=== PATIENT | male | born 1945 | race Caucasian/White ===

== ENCOUNTER → 2017-02-22 | Outpatient (REF) | payer MEDICARE ==
[~2017-02-22] MED LIST: /GLIP10TAB; ALTA10CA; ANDROGEL; CIME300T91; GLUC1000; JANUVIA; LIPI10TA; NADO40TA5; NORV5TAB; PLAV75TA2; metformin
[2017-02-22 11:38] LABS: MEAN CORPUSCULAR HEMOGLOBIN 33.6 pg (27.0-33.0); MEAN CORPUSCULAR HGB CONC 34.8 g/dl (32.0-36.5); MEAN CORPUSCULAR VOLUME 96.6 fl (80.0-96.0); RED CELL DISTRIBUTION WIDTH 12.6 % (11.5-14.5); WHITE BLOOD COUNT 5.1 K/mm3 (4.0-10.0)
[2017-02-22 11:48] LABS: ALBUMIN 3.7 GM/DL (3.2-5.2); ALBUMIN/GLOBULIN RATIO 1.23 (1.00-1.93); CALCIUM LEVEL 9.2 MG/DL (8.8-10.2); CREATININE FOR GFR 1.37 MG/DL (0.70-1.30); GLOMERULAR FILTRATION RATE 54.7 (>42); POTASSIUM SERUM 4.2 MEQ/L (3.5-5.1); TOTAL PROTEIN 6.7 GM/DL (6.4-8.2)
== END ==
LOC: M SFHCPLAZ 08:33
PROVIDERS: ATTEND Family Medicine
DX: I25.799 Atherosclerosis of other coronary artery bypass graft(s) with unspecified angina pectoris (principal); E11.51 Type 2 diabetes mellitus with diabetic peripheral angiopathy without gangrene

== ENCOUNTER → 2017-06-07 | Outpatient (REF) | payer MEDICARE ==
[~2017-06-07] MED LIST changes: +ASPI81TA85 PO; -GLUC1000; +GLUC1000 PO; +JARD1TAB3 PO; +LANTINJ4 SUBQ; -LIPI10TA; +LIPI10TA PO; +LISI2.5T3 PO; +METO1TAB87 PO; +MULT1TAB11 PO; +NITR0.4S14 SL; -PLAV75TA2; +PLAV75TA2 PO; +RANI150T PO; -metformin; +metformin PO
[2017-06-07 13:26] LABS: FOLATE > 24.0 NG/ML (>5.4); VITAMIN B12 LEVEL 487 PG/ML (247-911)
[2017-06-07 13:29] LABS: MEAN CORPUSCULAR HEMOGLOBIN 32.3 pg (27.0-33.0); MEAN CORPUSCULAR HGB CONC 34.3 g/dl (32.0-36.5); MEAN CORPUSCULAR VOLUME 94.1 fl (80.0-96.0)
[2017-06-07 13:30] LABS: ANION GAP 7 MEQ/L (8-16); BLOOD UREA NITROGEN 24 MG/DL (7-18); CARBON DIOXIDE LEVEL 27 MEQ/L (21-32); CHLORIDE LEVEL 111 MEQ/L (98-107); CREATININE FOR GFR 1.49 MG/DL (0.70-1.30); FREE T4 1.24 NG/DL (0.76-1.46); GLOMERULAR FILTRATION RATE 49.5 (>42); GLUCOSE, FASTING 139 MG/DL (83-110); SODIUM LEVEL 145 MEQ/L (136-145)
== END ==
LOC: M SFHCADAM 08:09
PROVIDERS: ATTEND Family Medicine
DX: R41.3 Other amnesia (principal); E11.51 Type 2 diabetes mellitus with diabetic peripheral angiopathy without gangrene

== ENCOUNTER → 2017-07-15 | Outpatient (CLI) | payer MEDICARE ==
[2017-07-15 13:26] LABS: CALCIUM LEVEL 9.1 MG/DL (8.8-10.2); CREATININE FOR GFR 1.33 MG/DL (0.70-1.30); GLOMERULAR FILTRATION RATE 56.4 (>42); POTASSIUM SERUM 4.9 MEQ/L (3.5-5.1)
== END ==
LOC: M WUC 10:04
PROVIDERS: ATTEND Nurse Practitioner Family
DX: E78.00 Pure hypercholesterolemia, unspecified (principal); I10 Essential (primary) hypertension; E11.9 Type 2 diabetes mellitus without complications; I73.9 Peripheral vascular disease, unspecified; Z95.5 Presence of coronary angioplasty implant and graft

== ENCOUNTER 2017-08-17 12:18 | Day surgery (SDC) | payer MEDICARE ==
[~2017-08-17] VITALS: Ht 177.8 cm; Wt 105.6 kg
[2017-08-17] MEDS ORDERED: NS 1,000 ML IV ONE (12:30)
[2017-08-17] MEDS ORDERED: PROPOFOL 200 MG/20 ML VIAL As Ordered ONE (12:58)
--- NOTE | 2017-08-17 14:18 | ROOR ---
Patient Name: Efren Cárdenas Procedure Date: 08/17/2017 1:41 PM Date of : 1945 Age: 72 Room: [facility] Gender: Male Note Status: Finalized Procedure: Total Colonoscopy to Cecum + Cold Snare Polypectomy + Hemoclip Indications: High risk colon cancer surveillance: Personal history of colonic polyps, Last colonoscopy: 2011 Providers: Bryce Ramos MD Referring MD: Homero Wills MD Requesting Provider: Medicines: Monitored Anesthesia Care Complications: No immediate complications. Procedure: Pre-Anesthesia Assessment: - The heart rate, respiratory rate, oxygen saturations, blood pressure, adequacy of pulmonary ventilation, and response to care were monitored throughout the procedure. The Colonoscope was introduced through the anus and advanced to the cecum, identified by appendiceal orifice and ileocecal valve. The colonoscopy was performed without difficulty. The patient tolerated the procedure well. The quality of the bowel preparation was good. Findings: The perianal and digital rectal examinations were normal. Non-bleeding internal hemorrhoids were found during retroflexion. The hemorrhoids were small and Grade I (internal hemorrhoids that do not prolapse). Scattered small-mouthed diverticula were found in the recto-sigmoid colon, sigmoid colon and descending colon. Multiple sessile polyps were found in the transverse colon and ascending colon. The polyps were small in size. These polyps were removed with a cold snare. Resection and retrieval were complete. To prevent bleeding after the polypectomy, one hemostatic clip was successfully placed (MR conditional). There was no bleeding at the end of the procedure. The exam was otherwise without abnormality on direct and retroflexion views. Impression: - Non-bleeding internal hemorrhoids. - Diverticulosis in the recto-sigmoid colon, in the sigmoid colon and in the descending colon. - Multiple small polyps in the transverse colon and in the ascending colon, removed with a cold snare. Resected and retrieved. Clip (MR conditional) was placed. - The examination was otherwise normal on direct and retroflexion views. - The exam was otherwise normal to the cecum. Recommendation: - Patient has a contact number available for emergencies. The signs and symptoms of potential delayed complications were discussed with the patient. Return to normal activities tomorrow. Written discharge instructions were provided to the patient. - Discharge patient to home. - Continue present medications. - Await pathology results. - Telephone GI clinic for pathology results in 1 week. - Check Portal Online for Path Results.([email or web address]) - Repeat colonoscopy in 5 years for surveillance based on pathology results. - Return to referring physician. - The findings and recommendations were discussed with the patient's family. Bryce Ramos MD Bryce Ramos MD 08/17/2017 2:18:41 PM This report has been signed electronically. Number of Addenda: 0 Note Initiated On: 08/17/2017 1:41 PM Estimated Blood Loss: Estimated blood loss: none.
[2017-08-17 14:50] VITALS: BP 109/65
== END 2017-08-17 14:55 | disposition home or self-care (01) ==
LOC: M OPP 12:18
PROVIDERS: ATTEND Internal Medicine Gastroenterology
DX: Z12.11 Encounter for screening for malignant neoplasm of colon (principal); Z86.010 Personal history of colon polyps; D12.2 Benign neoplasm of ascending colon; D12.3 Benign neoplasm of transverse colon; K64.0 First degree hemorrhoids; K57.30 Diverticulosis of large intestine without perforation or abscess without bleeding; I25.10 Atherosclerotic heart disease of native coronary artery without angina pectoris; Z95.5 Presence of coronary angioplasty implant and graft; I25.2 Old myocardial infarction; I10 Essential (primary) hypertension; E78.5 Hyperlipidemia, unspecified; Z95.828 Presence of other vascular implants and grafts; E11.9 Type 2 diabetes mellitus without complications; R12 Heartburn; K21.9 Gastro-esophageal reflux disease without esophagitis; K57.92 Diverticulitis of intestine, part unspecified, without perforation or abscess without bleeding; Z95.1 Presence of aortocoronary bypass graft; M19.90 Unspecified osteoarthritis, unspecified site; F41.9 Anxiety disorder, unspecified; Z86.73 Personal history of transient ischemic attack (TIA), and cerebral infarction without residual deficits; N40.1 Benign prostatic hyperplasia with lower urinary tract symptoms; Z87.891 Personal history of nicotine dependence; Z88.1 Allergy status to other antibiotic agents; Z88.0 Allergy status to penicillin; Z91.030 Bee allergy status; Z79.82 Long term (current) use of aspirin; Z79.899 Other long term (current) drug therapy; Z79.4 Long term (current) use of insulin; Z79.02 Long term (current) use of antithrombotics/antiplatelets

== ENCOUNTER → 2018-03-22 | Outpatient (REF) | payer MEDICARE ==
[2018-03-22 12:45] LABS: HEMATOCRIT 45.6 % (42.0-52.0); HEMOGLOBIN 15.7 g/dl (13.5-17.5); MEAN CORPUSCULAR HEMOGLOBIN 31.9 pg (27.0-33.0); MEAN CORPUSCULAR HGB CONC 34.4 g/dl (32.0-36.5); MEAN CORPUSCULAR VOLUME 92.7 fl (80.0-96.0); PLATELET COUNT, AUTOMATED 232 10^3/uL (150-450); RED BLOOD COUNT 4.92 10^6/uL (4.30-6.10); RED CELL DISTRIBUTION WIDTH 12.9 % (11.5-14.5); WHITE BLOOD COUNT 5.4 10^3/uL (4.0-10.0)
[2018-03-22 13:07] LABS: ALBUMIN 3.6 GM/DL (3.2-5.2); ALBUMIN/GLOBULIN RATIO 1.29 (1.00-1.93); ALKALINE PHOSPHATASE 89 U/L (45-117); ALT/SGPT 26 U/L (12-78); ANION GAP 11 MEQ/L (8-16); AST/SGOT 14 U/L (7-37); BILIRUBIN,TOTAL 0.8 MG/DL (0.2-1.0); BLOOD UREA NITROGEN 24 MG/DL (7-18); CALCIUM LEVEL 9.1 MG/DL (8.8-10.2); CARBON DIOXIDE LEVEL 23 MEQ/L (21-32); CHLORIDE LEVEL 110 MEQ/L (98-107); CHOLESTEROL LEVEL 99 MG/DL (<200); CREATININE FOR GFR 1.34 MG/DL (0.70-1.30); GLOMERULAR FILTRATION RATE 55.9 (>42); GLUCOSE, FASTING 143 MG/DL (70-100); HDL CHOLESTEROL 30 MG/DL (>40); LDL CHOLESTEROL 42.4 MG/DL (<100); NON-HDL-C 69 MG/DL; POTASSIUM SERUM 4.7 MEQ/L (3.5-5.1); SODIUM LEVEL 144 MEQ/L (136-145); TOTAL PROTEIN 6.4 GM/DL (6.4-8.2); TRIGLYCERIDES LEVEL 133 MG/DL (<150)
[2018-03-22 13:14] LABS: ESTIMATED AVERAGE GLUCOSE 169 MG/DL (60-110); HEMOGLOBIN A1c 7.5 %
[2018-03-22 13:26] LABS: CREATININE, URINE 54.2 MG/DL; MALB URINE SIEMENS 34.7 MG/L
[2018-03-22 14:48] LABS: HEP C VIRUS AB SCREEN MEDICARE < 0.0 INDEX (<0.8)
== END ==
LOC: M SFHCADAM 10:17
DX: N18.3 Chronic kidney disease, stage 3 (moderate) (principal); E11.51 Type 2 diabetes mellitus with diabetic peripheral angiopathy without gangrene; E78.2 Mixed hyperlipidemia; Z11.59 Encounter for screening for other viral diseases
CPT/HCPCS: 80053

== ENCOUNTER → 2018-03-29 | Outpatient (CLI) | payer MEDICARE | LOC: M ADAMS 14:39 | DX: M51.36 Other intervertebral disc degeneration, lumbar region (principal); M25.78 Osteophyte, vertebrae; M41.25 Other idiopathic scoliosis, thoracolumbar region; M51.46 Schmorl's nodes, lumbar region; R10.9 Unspecified abdominal pain | CPT/HCPCS: 72110 ==

== ENCOUNTER → 2018-04-03 | Outpatient (CLI) | payer MEDICARE | LOC: M RAD 13:18 | DX: R10.9 Unspecified abdominal pain (principal) | CPT/HCPCS: 76775 ==

== ENCOUNTER → 2018-07-18 | Outpatient (REF) | payer MEDICARE ==
[2018-07-18 13:09] LABS: ANION GAP 7 MEQ/L (8-16); BLOOD UREA NITROGEN 25 MG/DL (7-18); CALCIUM LEVEL 8.8 MG/DL (8.8-10.2); CARBON DIOXIDE LEVEL 25 MEQ/L (21-32); CHLORIDE LEVEL 111 MEQ/L (98-107); CREATININE FOR GFR 1.29 MG/DL (0.70-1.30); GLOMERULAR FILTRATION RATE 58.3 (>42); GLUCOSE, FASTING 130 MG/DL (70-100); POTASSIUM SERUM 4.6 MEQ/L (3.5-5.1); SODIUM LEVEL 143 MEQ/L (136-145)
[2018-07-18 23:30] LABS: ESTIMATED AVERAGE GLUCOSE 154 MG/DL (60-110)
== END ==
LOC: M SFHCADAM 09:30
DX: E11.51 Type 2 diabetes mellitus with diabetic peripheral angiopathy without gangrene (principal)
CPT/HCPCS: 83036

== ENCOUNTER → 2019-02-18 | Outpatient (REF) | payer MEDICARE ==
[~2019-02-18] MED LIST changes: +LISI-1046 PO; -LISI2.5T3 PO
[2019-02-18 09:42] LABS: HEMATOCRIT 46.8 % (42.0-52.0); HEMOGLOBIN 15.7 g/dl (13.5-17.5); MEAN CORPUSCULAR HEMOGLOBIN 31.9 pg (27.0-33.0); MEAN CORPUSCULAR HGB CONC 33.5 g/dl (32.0-36.5); MEAN CORPUSCULAR VOLUME 95.1 fl (80.0-96.0); PLATELET COUNT, AUTOMATED 181 10^3/uL (150-450); RED BLOOD COUNT 4.92 10^6/uL (4.30-6.10); WHITE BLOOD COUNT 5.3 10^3/uL (4.0-10.0)
[2019-02-18 10:07] LABS: ALBUMIN 3.8 GM/DL (3.2-5.2); BILIRUBIN,TOTAL 1.3 MG/DL (0.2-1.0); CALCIUM LEVEL 8.9 MG/DL (8.8-10.2); CHOLESTEROL RISK RATIO 2.909 (<5); CREATININE FOR GFR 1.38 MG/DL (0.70-1.30); GLOMERULAR FILTRATION RATE 53.9 (>42); POTASSIUM SERUM 5.1 MEQ/L (3.5-5.1); TOTAL PROTEIN 6.5 GM/DL (6.4-8.2)
[2019-02-18 10:14] LABS: CREATININE, URINE 51.5 MG/DL; MAU/CREAT RATIO 62.1 MCG/MG (0.0-30.0)
[2019-02-18 10:40] LABS: HEMOGLOBIN A1c 7.6 %
== END ==
LOC: M SFHCADAM 08:51
PROVIDERS: ATTEND Family Medicine
DX: I25.799 Atherosclerosis of other coronary artery bypass graft(s) with unspecified angina pectoris (principal); N18.3 Chronic kidney disease, stage 3 (moderate); E11.51 Type 2 diabetes mellitus with diabetic peripheral angiopathy without gangrene; E78.2 Mixed hyperlipidemia; Z12.5 Encounter for screening for malignant neoplasm of prostate
CPT/HCPCS: 80053; 80061; 82043; 83036; 85027; G0103

== ENCOUNTER → 2019-03-23 | Outpatient (CLI) | payer MEDICARE ==
--- NOTE | 2019-03-23 14:47 | REP ---
Bilateral lower extremity arterial Doppler ultrasound: History: Intermittent claudication. Peripheral vascular disease. Right lower extremity bypass. Findings: Ankle brachial index on the right could not be done to to bypass graft and reversal of flow seen. Ankle brachial index on the left is 0.7. There is a patent bypass graft from the proximal femoral artery on the right to the posterior tibial artery. The [place] right superficial femoral artery and popliteal artery are occluded with minimal revascularization at the popliteal artery flow in the proximal anterior tibial artery. Reverse flow is seen in the distal anterior tibial artery on the right. On the left monophasic flow waveforms are seen throughout. Extensive severe plaque is seen throughout. Velocity chart right lower extremity arteries: CF A 109 cm/S Profunda 77 Proximal SFA 86 Mid SFA occluded Distal SFA occluded Popliteal seven Proximal AT A 36 Tibioperoneal trunk occluded Proximal REFRIGERATION SERVICE TECHNICIAN occluded Distal REFRIGERATION SERVICE TECHNICIAN 95 Distal AT A reversed flow. Velocity chart left lower extremity arteries: External iliac artery 106 cm/S CF A 77 Profunda 54 Proximal SFA 31 Mid SFA 76 Distal SFA 26 Popliteal 21 Proximal AT A 14 Tibioperoneal trunk 63 Proximal REFRIGERATION SERVICE TECHNICIAN 40 Distal REFRIGERATION SERVICE TECHNICIAN 31 Distal AT A 27 Electronically Signed by Don Mascorro MD 03/23/2019 02:38 P
== END ==
LOC: M RAD 12:37
PROVIDERS: ATTEND Surgery Vascular Surgery
DX: I70.213 Atherosclerosis of native arteries of extremities with intermittent claudication, bilateral legs (principal)

== ENCOUNTER → 2019-06-22 | Outpatient (REF) | payer MEDICARE ==
[2019-06-22 12:36] LABS: HEMATOCRIT 46.3 % (42.0-52.0); HEMOGLOBIN 15.6 g/dl (13.5-17.5); MEAN CORPUSCULAR HEMOGLOBIN 31.6 pg (27.0-33.0); MEAN CORPUSCULAR HGB CONC 33.7 g/dl (32.0-36.5); MEAN CORPUSCULAR VOLUME 93.9 fl (80.0-96.0); PLATELET COUNT, AUTOMATED 192 10^3/uL (150-450); RED BLOOD COUNT 4.93 10^6/uL (4.30-6.10)
[2019-06-22 12:41] LABS: CALCIUM LEVEL 9.4 MG/DL (8.8-10.2); CREATININE FOR GFR 1.31 MG/DL (0.70-1.30); GLOMERULAR FILTRATION RATE 57.1 (>42); POTASSIUM SERUM 4.3 MEQ/L (3.5-5.1)
[2019-06-22 13:56] LABS: HEMOGLOBIN A1c 7.7 %
== END ==
LOC: M SFHCADAM 08:37
PROVIDERS: ATTEND Family Medicine
DX: I63.49 Cerebral infarction due to embolism of other cerebral artery (principal); N18.3 Chronic kidney disease, stage 3 (moderate); E11.51 Type 2 diabetes mellitus with diabetic peripheral angiopathy without gangrene

== ENCOUNTER → 2020-02-18 | Outpatient (REF) | payer MEDICARE ==
[~2020-02-18] MED LIST changes: -LISI-1046 PO; +LISI2.5T2 PO
[2020-02-18 12:57] LABS: HEMATOCRIT 49.8 % (42.0-52.0); HEMOGLOBIN 16.3 g/dl (13.5-17.5); MEAN CORPUSCULAR HEMOGLOBIN 29.9 pg (27.0-33.0); MEAN CORPUSCULAR HGB CONC 32.7 g/dl (32.0-36.5); MEAN CORPUSCULAR VOLUME 91.2 fl (80.0-96.0); PLATELET COUNT, AUTOMATED 225 10^3/uL (150-450); RED BLOOD COUNT 5.46 10^6/uL (4.30-6.10); WHITE BLOOD COUNT 5.9 10^3/uL (4.0-10.0)
[2020-02-18 13:08] LABS: BILIRUBIN,TOTAL 1.3 MG/DL (0.2-1.0); CALCIUM LEVEL 9.4 MG/DL (8.8-10.2); CHOLESTEROL RISK RATIO 3.352 (<5); CREATININE FOR GFR 1.34 MG/DL (0.70-1.30); GLOMERULAR FILTRATION RATE 55.6 (>42); POTASSIUM SERUM 4.5 MEQ/L (3.5-5.1); TOTAL PROTEIN 7.2 GM/DL (6.4-8.2)
[2020-02-18 13:32] LABS: CREATININE, URINE 69.4 MG/DL; MALB URINE SIEMENS 54.5 MG/L; MAU/CREAT RATIO 78.5 MCG/MG (0.0-30.0)
[2020-02-18 14:35] LABS: HEMOGLOBIN A1c 7.9 %
== END ==
LOC: M SFHCADAM 09:22
PROVIDERS: ATTEND Family Medicine
DX: N18.3 Chronic kidney disease, stage 3 (moderate) (principal); E11.49 Type 2 diabetes mellitus with other diabetic neurological complication; I11.9 Hypertensive heart disease without heart failure; I63.49 Cerebral infarction due to embolism of other cerebral artery

== ENCOUNTER → 2020-05-16 | Outpatient (REF) | payer MEDICARE ==
[~2020-05-16] MED LIST changes: -ASPI81TA85 PO; +ASPI81TA86 PO; +BRIL90TA PO; +FARX1TAB3 PO; +MULT-90 PO; +NORV2TAB PO; +PEPC10TA6 PO; +[UNRECOGNIZED DRUG - OTHER] PO
[2020-06-14 04:13] LABS: INR 1.2; PARTIAL THROMBOPLASTIN TIME 33.3 SECONDS (25.0-38.4); PROTHROMBIN TIME 15.5 SECONDS (11.8-14.0)
[2020-06-14 04:28] LABS: BASO # 0.1 10^3/uL (0.0-0.2); EOS # 0.3 10^3/uL (0.0-0.5); EOS % 4.7 % (0.0-3.0); HEMATOCRIT 46.2 % (42.0-52.0); LYMPH # 1.7 10^3/uL (1.5-5.0); LYMPH % 27.1 % (24.0-44.0); MEAN CORPUSCULAR HEMOGLOBIN 30.5 pg (27.0-33.0); MEAN CORPUSCULAR HGB CONC 32.5 g/dl (32.0-36.5); MEAN CORPUSCULAR VOLUME 94.1 fl (80.0-96.0); MONO # 0.5 10^3/uL (0.0-0.8); MONO % 8.8 % (0.0-5.0); NEUTROPHILS # 3.6 10^3/uL (1.5-8.5); NEUTROPHILS % 58.1 % (36.0-66.0); PLATELET COUNT, AUTOMATED 243 10^3/uL (150-450); RED BLOOD COUNT 4.91 10^6/uL (4.30-6.10); WHITE BLOOD COUNT 6.2 10^3/uL (4.0-10.0)
[2020-06-30 07:58] LABS: CALCIUM LEVEL 9.1 MG/DL (8.8-10.2); CREATININE FOR GFR 1.4 MG/DL (0.70-1.30); GLOMERULAR FILTRATION RATE 52.7 (>42); POTASSIUM SERUM 4.5 MEQ/L (3.5-5.1)
== END ==
LOC: M LAB REF 15:22
PROVIDERS: ATTEND Surgery Vascular Surgery
DX: Z01.818 Encounter for other preprocedural examination (principal); D69.8 Other specified hemorrhagic conditions

== ENCOUNTER → 2020-06-04 | Outpatient (REF) | payer MEDICARE ==
[2020-06-04 14:42] LABS: ALBUMIN 3.8 GM/DL (3.2-5.2); BILIRUBIN,TOTAL 1.1 MG/DL (0.2-1.0); CALCIUM LEVEL 9.4 MG/DL (8.8-10.2); CREATININE FOR GFR 1.43 MG/DL (0.70-1.30); GLOMERULAR FILTRATION RATE 51.5 (>42); POTASSIUM SERUM 4.6 MEQ/L (3.5-5.1); TOTAL PROTEIN 6.7 GM/DL (6.4-8.2)
[2020-06-04 14:43] LABS: HEMATOCRIT 46.8 % (42.0-52.0); HEMOGLOBIN 15.1 g/dl (13.5-17.5); MEAN CORPUSCULAR HEMOGLOBIN 30.6 pg (27.0-33.0); MEAN CORPUSCULAR HGB CONC 32.3 g/dl (32.0-36.5); MEAN CORPUSCULAR VOLUME 94.7 fl (80.0-96.0); PLATELET COUNT, AUTOMATED 243 10^3/uL (150-450); RED BLOOD COUNT 4.94 10^6/uL (4.30-6.10)
[2020-06-04 15:59] LABS: HEMOGLOBIN A1c 6.7 %
== END ==
LOC: M LABDRWAD 12:53
PROVIDERS: ATTEND Family Medicine
DX: E11.51 Type 2 diabetes mellitus with diabetic peripheral angiopathy without gangrene (principal); I73.9 Peripheral vascular disease, unspecified; N18.3 Chronic kidney disease, stage 3 (moderate)
CPT/HCPCS: 36415; 80053; 83036; 85027; G0463

== ENCOUNTER → 2020-06-24 | Outpatient (REF) | payer MEDICARE | LOC: M LAB REF 11:43 | PROVIDERS: ATTEND Surgery | DX: E11.621 Type 2 diabetes mellitus with foot ulcer (principal) | CPT/HCPCS: 11044; 87070; 87077; 87186; 88305; G0463 ==

== ENCOUNTER → 2020-07-22 | Outpatient (POV) | payer MEDICARE ==
--- NOTE | 2020-07-23 13:49 | IRCOV ---
[facility] IR Consult Office Visit IR Consult Office Visit DATE: Jul 22, 2020 Patient agreed to this telephone consultation. I spent 30 minutes reviewing patient's chart and talking to the patient. REASON FOR CONSULTATION/CHIEF COMPLAINT: Nonhealing right lower extremity ulcers. HISTORY OF PRESENT ILLNESS: 75-year-old male with coronary artery disease, prior stroke and prior right lower extremity arterial bypass, presents for nonhealing right lower extremity wounds. Patient states the bypass was performed 6 years ago because at that time he had pain in his legs with walking. After the bypass surgery, the pain went away. However, he is suffering with exquisitely painful, right lower extremity wounds which started this summer. He is under the care of wound care. He denies intermittent claudication but is not very mobile. Denies rest pain. Patient states he had left lower extremity angioplasty and stenting by interventional cardiology in [place]. He also underwent angiography by interventional cardiology in [place] in December of this year, at which time he had proximal angioplasty. He was seen by vascular surgery in May 2020 with angiogram. At that time, he was told no further below-knee intervention was possible. He was given the option of an additional bypass and was told this would be very complicated. Patient has had prior open-heart surgery and coronary stents placed in 2016. He had a stroke in 2019. He quit smoking greater than 1 year ago. He is diabetic with a hemoglobin A1c controlled at 6.7. He is hypertensive with blood pressure poorly controlled. He takes aspirin, Brilinta and Xarelto. ALLERGIES: Please see below. HOME MEDICATIONS: Please see below. PAST MEDICAL HISTORY: CAD Non-STEMI 2016 Cardiac cath 2016 CVA 2019 Pancreatitis Hypertension Type 2 diabetes Neuropathy Hyperlipidemia Testosterone deficiency CK D PAST SURGICAL HISTORY: Open-heart bypass 2005 Coronary stents 2016 Thrombolysis for stroke in 2019 Left lower extremity angioplasty and stenting Right lower extremity angiogram and intervention FAMILY HISTORY: Noncontributory SOCIAL HISTORY: Ex-smoker. Quit 1 year ago. Denies alcohol or drugs. REVIEW OF SYSTEMS: Otherwise negative PHYSICAL EXAMINATION: No video on patient side. LABORATORY DATA: 06/04/2020 hemoglobin 15.1 hematocrit 46.8 WBC 7.0 platelets 243 sodium 142 potassium 4.6 BUN 22 creatinine 1.43 GFR 51.5 fasting glucose 186. hemoglobin A1c 6.7. LDL 53 on 02/18/2020 INR 1.2 on 05/16/2020 Imaging: No imaging available. ASSESSMENT/PLAN: 75-year-old male with coronary and cerebrovascular disease and peripheral arterial disease status post right leg bypass with new nonhealing arterial ulcers. Patient had prior angiogram without below-knee or pedal intervention. We discussed the risks and benefits of performing angiogram and attempted pedal revascularization. Patient would like to proceed. We will request the imaging from [facility] for pre-angiography planning. We have scheduled the patient for the procedure. Thank you for this referral. CC Dr. Naidu Allergies Coded Allergies: MS - Bee Venom (Verified Allergy, Severe, BREATHING TROUBLE, 08/16/17) MS - Penicillins (Unverified Allergy, Severe, TROUBLE BREATHING,HIVES, 08/16/17) MS - Penicillins Cross Reactors (Unverified Allergy, Severe, TROUBLE BREATHING,HIVES, 08/16/17) MS - Erythromycin (Unverified Adverse Reaction, Mild, UPSET STOMACH GI, 08/16/17) Home Medications Scheduled (Multivitamin Men), 1 TAB PO DAILY, (Reported) Aspirin (Aspir 81), 81 MG PO DAILY, (Reported) Atorvastatin Calcium (Lipitor), 10 MG PO DAILY, (Reported) Clopidogrel Bisulfate (Plavix), 75 MG PO DAILY, (Reported) Empagliflozin (Jardiance), 10 MG PO DAILY, (Reported) Insulin Glargine,Hum.rec.anlog (Lantus Solostar), 70 UNITS SUBQ QAM, (Reported) Lisinopril (Lisinopril), 2.5 MG PO DAILY, (Reported) Metformin HCl (Metformin Hcl), 1,000 MG PO QPM, (Reported) Metoprolol Tartrate (Metoprolol Tartrate), 25 MG PO BID, (Reported) Ranitidine HCl (Ranitidine HCl), 150 MG PO BID, (Reported) [metformin], 1,500 MG PO QAM, (Reported) Scheduled PRN Nitroglycerin (Nitroglycerin), 0.4 MG SL ASDIRECTED PRN for CHEST PAIN, (Reported) LEE WOODS MD Jul 23, 2020 13:49
== END ==
LOC: M TMIRPOV 13:38
PROVIDERS: ATTEND Radiology Diagnostic Radiology
DX: L97.919 Non-pressure chronic ulcer of unspecified part of right lower leg with unspecified severity (principal); E11.22 Type 2 diabetes mellitus with diabetic chronic kidney disease; E11.40 Type 2 diabetes mellitus with diabetic neuropathy, unspecified; E11.622 Type 2 diabetes mellitus with other skin ulcer; I12.9 Hypertensive chronic kidney disease with stage 1 through stage 4 chronic kidney disease, or unspecified chronic kidney disease; I25.10 Atherosclerotic heart disease of native coronary artery without angina pectoris; I25.2 Old myocardial infarction; N18.9 Chronic kidney disease, unspecified; Z79.82 Long term (current) use of aspirin; Z79.84 Long term (current) use of oral hypoglycemic drugs; Z79.899 Other long term (current) drug therapy; Z86.73 Personal history of transient ischemic attack (TIA), and cerebral infarction without residual deficits; Z88.0 Allergy status to penicillin; Z88.1 Allergy status to other antibiotic agents; Z91.030 Bee allergy status; Z95.5 Presence of coronary angioplasty implant and graft; Z95.828 Presence of other vascular implants and grafts; Z98.61 Coronary angioplasty status

== ENCOUNTER → 2020-07-31 | Outpatient (CLI) | payer MEDICARE ==
[~2020-07-31] MED LIST changes: +ISOVUE-300 61% 50ML VIAL As Ordered ONE; +LIDOCAINE 1% MDV 20ML VIAL As Ordered ONE; +MIDAZOLAM INJ 2MG/2ML VIAL (J2250 PER 1MG) As Ordered ONE; +PROMETHAZINE INJ 25 MG/ML VIAL (J2550) As Ordered ONE; +diphenhydrAMINE 50MG/ML VIAL (J1200) As Ordered ONE; +fentaNYL 100 MCG/2 ML INJECTION (J3010) As Ordered ONE
[2020-07-31 09:57] LABS: HEMATOCRIT 51.1 % (42.0-52.0); HEMOGLOBIN 16.5 g/dl (13.5-17.5); MEAN CORPUSCULAR HEMOGLOBIN 30.3 pg (27.0-33.0); MEAN CORPUSCULAR HGB CONC 32.3 g/dl (32.0-36.5); MEAN CORPUSCULAR VOLUME 93.9 fl (80.0-96.0); PLATELET COUNT, AUTOMATED 189 10^3/uL (150-450); RED BLOOD COUNT 5.44 10^6/uL (4.30-6.10); WHITE BLOOD COUNT 7.4 10^3/uL (4.0-10.0)
--- NOTE | 2020-07-31 10:13 | IRHP ---
[facility] IR Pre-Procedure H & P General Date of Service: Jul 31, 2020 Procedure: Same Day Surgery Interval History and Physical I have seen the patient and reviewed last H & P performed within 30 days. There is no significant interval change. History of Present Illness Chief Complaint The patient is a 75-year-old male admitted with a reason for visit of PAD. PRE-PROCEDURE DIAGNOSIS: PAD HEART: normal rate. LUNGS: normal breathing at rest. ASA Classification ASA Classification: III-Severe systemic dis. Mallampati Score: II NPO: Yes Problems with prior sedation: No Obstructive Sleep Apnea: No Plan moderate sedation Allergies Coded Allergies: MS - Bee Venom (Verified Allergy, Severe, BREATHING TROUBLE, 08/16/17) MS - Penicillins (Unverified Allergy, Severe, TROUBLE BREATHING,HIVES, 08/16/17) MS - Penicillins Cross Reactors (Unverified Allergy, Severe, TROUBLE BREATHING,HIVES, 08/16/17) MS - Erythromycin (Unverified Adverse Reaction, Mild, UPSET STOMACH GI, 08/16/17) Home Medications Scheduled (Multivitamin Men), 1 TAB PO DAILY, (Reported) Aspirin (Aspir 81), 81 MG PO DAILY, (Reported) Atorvastatin Calcium (Lipitor), 10 MG PO DAILY, (Reported) Clopidogrel Bisulfate (Plavix), 75 MG PO DAILY, (Reported) Empagliflozin (Jardiance), 10 MG PO DAILY, (Reported) Insulin Glargine,Hum.rec.anlog (Lantus Solostar), 70 UNITS SUBQ QAM, (Reported) Lisinopril (Lisinopril), 2.5 MG PO DAILY, (Reported) Metformin HCl (Metformin Hcl), 1,000 MG PO QPM, (Reported) Metoprolol Tartrate (Metoprolol Tartrate), 25 MG PO BID, (Reported) Ranitidine HCl (Ranitidine HCl), 150 MG PO BID, (Reported) [metformin], 1,500 MG PO QAM, (Reported) Scheduled PRN Nitroglycerin (Nitroglycerin), 0.4 MG SL ASDIRECTED PRN for CHEST PAIN, (Reported) VS, I&O, 24H, Fishbone Vital Signs/I&O Vital Signs Date Time Temp Pulse Resp B/P (MAP) Pulse Ox O2 Delivery O2 Flow Rate FiO2 07/31/20 09:35 98.1 75 18 98 Room Air Laboratory Data 24H LABS Laboratory Tests 2 07/31/20 09:44: Nucleated Red Blood Cells % (auto) 0.0 CBC/BMP Laboratory Tests 07/31/20 09:44 LEE WOODS MD Jul 31, 2020 10:13
[2020-07-31 10:27] LABS: CREATININE FOR GFR 1.39 MG/DL (0.70-1.30); GLOMERULAR FILTRATION RATE 53.2 (>42)
[2020-07-31 18:20] VITALS: BP 156/78
--- NOTE | 2020-08-04 10:21 | POST-OPPD ---
Postoperative Procedure Note Date Of Procedure: Jul 31, 2020 Time Of Procedure: 16:00 IR Right leg angiogram IR Below-knee runoff arteriogram. IR Ultrasound-guided right femoral artery access. IR Right posterior tibial artery recanalization. IR Right posterior tibial artery angioplasty. IR Right plantar artery angioplasty. IR Moderate sedation. Clinical Information:Nonhealing right lower extremity arterial ulcers. Physician: Dr. Sumner. Procedure: The patient was advised of the benefits, risks, and alternatives of the procedure and informed consent was obtained. A time out was performed with verification of the patient's name, MRN, site of procedure, and type of procedure to be performed. The patient was positioned in the supine position on the angiographic table. The site was prepped and draped in the usual sterile fashion. Moderate sedation was performed by the physician including the presence of an independent trained RN, who assisted in monitoring the patient's level of consciousness and physiological status. Following the administration of fent anyl and Versed, the physician spent 120 minutes of continuous wobl-to-npgn time with the patient. A heel top lift splitter radiograph reveals surgical clips in the right thigh. Ultrasound of the right groin demonstrates patent right femoral artery. Lidocaine was used for local anesthesia. The right femoral artery was accessed antegrade, under ultrasound guidance with a microintroducer set. A short 0.018" [place] wire was inserted and the needle was exchanged for a 4 Fr microintroducer sheath. The guidewire and dilator were removed and a 0.035" [place] wire was placed into femoral artery. A 6 Fr sheath was placed over the wire. A right thigh angiogram was performed. This demonstrates patent proximal superficial femoral artery and profunda femoris. Occluded mid [place] superficial femoral artery. Patent bypass arising from the right superficial artery. Angiography further down the right leg was performed and this demonstrates Patent mid and distal fem-tib bypass. There is retrograde filling of the proximal peroneal and anterior tibial artery. Completely occluded mid and distal [place] SFA and popliteal artery. Angiography runoff to the right foot was performed. This demonstrates patent distal fem-tib bypass but complete occlusion of the posterior tibial artery distal to the bypass. There are intricate collaterals which reconstitute the dorsalis pedis, distal peroneal artery and plantar and calcaneal branches in the foot without direct in line tibial flow. A crossing catheter and wire were used under fluoroscopy guidance to catheterize the distal right fem-tib bypass. A magnification arteriogram was performed and this demonstrates complete occlusi on of the posterior tibial artery distal to the bypass. The catheter in conjunction with the wire was used to recanalize the posterior tibial artery. Intermittent injection of contrast confirms intraluminal location. An arteriogram was performed and this demonstrates catheterization of a collateral vessel and not the hibernating posterior tibial artery. The catheter was again retracted back to the distal bypass. In conjunction with the wire, the catheter was used to recanalize the posterior tibial artery. Intermittent injection of contrast confirmed intraluminal location. After successful catheterization to the right ankle, and angiogram was performed. This demonstrates successful catheterization of the right posterior tibial artery and forward flow in the medial plantar artery. There is multi segment 50-90% stenosis in the plantar artery and slow forward flow. The crossing catheter was removed of the wire. A 2.5 mm James angioplasty balloon was then advanced over the wire under fluoroscopy guidance and positioned in the right distal posterior tibial artery and medial plantar artery. Heparin was administered. Angioplasty was performed. The balloon was deflated and then repositioned in the distal bypass and posterior tibial artery. Angioplasty was performed. An angiogram of the right forefoot was performed through the catheter. This demonstrates patent metatarsal arteries. The catheter was retracted to the level of the calcaneus. A post angioplasty follow-up arteriogram was performed and this demonstrates improved flow in the right plantar artery and metatarsal arteries. The catheter was retracted to the distal posterior tibial artery and a post angioplasty follow-up arteriogram was performed. This demonstrates the posterior tibial artery which is now visible and appears normal in size with good forward flow supplying the plantar arteries. No extravasation, distal emboli or vessel injury. The catheter was retracted back to the distal bypass and a post angioplasty follow-up arteriogram was performed from this location. This demonstrates no flow in the posterior tibial artery close to the distal bypass. The catheter and wire were again used to catheterize the posterior tibial artery into the plantar artery. Injection of contrast confirms intraluminal location within the distal plantar artery. The 2.5 mm angioplasty balloon was readvanced over the wire and positioned in the posterior tibial artery. Repeat angioplasty was performed. A final post angioplasty follow-up arteriogram was performed and this demonstrates successful recanalization of the posterior tibial artery. There is now forward flow in the entire posterior tibial artery, distal to the bypass with improved supply to collaterals which also reconstitute the peroneal artery and dorsalis pedis. There is forward flow in the plantar and calcaneal branches. Improved flow to the right foot. Catheter wire and sheath were removed, pressure held and hemostasis achieved. A sterile dressing was applied to the site. The patient tolerated the procedure well and was returned to the PRU in stable condition. EBL: < 5 mL. Complications:None. Impression: 1. Right leg angiogram demonstrates patent fem-tib bypass. 2. Complete occlusion of the right posterior tibial artery distal to the bypass. 3. Successful recanalization of right posterior tibial artery distal to bypass. 4. Successful right posterior tibial artery angioplasty and plantar artery angioplasty with improved flow to the right foot. Thank you for this referral CC LEE Brewer MD Aug 04, 2020 10:21
== END ==
LOC: M IRPRO 09:19
PROVIDERS: ATTEND Radiology Diagnostic Radiology
DX: I70.239 Atherosclerosis of native arteries of right leg with ulceration of unspecified site (principal); L97.819 Non-pressure chronic ulcer of other part of right lower leg with unspecified severity; Z79.82 Long term (current) use of aspirin; Z79.899 Other long term (current) drug therapy; Z88.0 Allergy status to penicillin; Z88.1 Allergy status to other antibiotic agents; Z91.030 Bee allergy status
CPT/HCPCS: 37228; 75710; 80048; 85027; 99152; 99153; C1725; C1729; C1769; C1887; C1894; J1200; J1644; J2250; J3010; Q9967

== ENCOUNTER → 2020-08-19 | Outpatient (POV) | payer MEDICARE ==
[~2020-08-19] MED LIST changes: -ISOVUE-300 61% 50ML VIAL As Ordered ONE; -LIDOCAINE 1% MDV 20ML VIAL As Ordered ONE; -MIDAZOLAM INJ 2MG/2ML VIAL (J2250 PER 1MG) As Ordered ONE; -PROMETHAZINE INJ 25 MG/ML VIAL (J2550) As Ordered ONE; -diphenhydrAMINE 50MG/ML VIAL (J1200) As Ordered ONE; -fentaNYL 100 MCG/2 ML INJECTION (J3010) As Ordered ONE
--- NOTE | 2020-08-20 11:55 | IRPN ---
[facility] IR Progress Note IR Progress Note DATE: Aug 19, 2020 Patient agreed to this telephone follow-up. Duration of call 5 minutes. FOLLOW-UP: 2 weeks status post right lower extremity angiogram for posterior tibial artery occlusion. Patient doing well. No mass, pain or bruising at the groin access site reported. Patient lower extremity pain improved after the procedure. ON EXAMINATION: No video on patient side. IMPRESSION: Patient with right lower extremity fem-tib bypass who has a patent bypass but had a posterior tibial artery occlusion distal to the bypass. This was successfully angioplastied with recanalization of the distal posterior tibial artery into the foot. Patient is doing well post procedure. Annual follow-up scheduled for next June. Thank you for this referral Allergies Coded Allergies: MS - Bee Venom (Verified Allergy, Severe, BREATHING TROUBLE, 08/16/17) MS - Penicillins (Unverified Allergy, Severe, TROUBLE BREATHING,HIVES, 08/16/17) MS - Penicillins Cross Reactors (Unverified Allergy, Severe, TROUBLE BREATHING,HIVES, 08/16/17) MS - Erythromycin (Unverified Adverse Reaction, Mild, UPSET STOMACH GI, 08/16/17) LEE WOODS MD Aug 20, 2020 11:55
== END ==
LOC: M TMIRPOV 07:51
PROVIDERS: ATTEND Radiology Diagnostic Radiology
DX: Z48.812 Encounter for surgical aftercare following surgery on the circulatory system (principal)

== ENCOUNTER → 2021-02-19 | Outpatient (REF) | payer MEDICARE ==
[2021-02-19 12:48] LABS: HEMATOCRIT 47.3 % (42.0-52.0); HEMOGLOBIN 15.3 g/dl (13.5-17.5); MEAN CORPUSCULAR HGB CONC 32.3 g/dl (32.0-36.5); MEAN CORPUSCULAR VOLUME 89.6 fl (80.0-96.0); PLATELET COUNT, AUTOMATED 214 10^3/uL (150-450); RED BLOOD COUNT 5.28 10^6/uL (4.30-6.10); WHITE BLOOD COUNT 5.3 10^3/uL (4.0-10.0)
[2021-02-19 13:13] LABS: ALBUMIN 3.8 GM/DL (3.2-5.2); BILIRUBIN,TOTAL 1.2 MG/DL (0.2-1.0); CALCIUM LEVEL 9.7 MG/DL (8.8-10.2); CHOLESTEROL RISK RATIO 3.1 (<5); CREATININE FOR GFR 1.32 MG/DL (0.70-1.30); GLOMERULAR FILTRATION RATE 56.4 (>42); POTASSIUM SERUM 4.6 MEQ/L (3.5-5.1); TOTAL PROTEIN 6.8 GM/DL (6.4-8.2)
[2021-02-19 13:24] LABS: HEMOGLOBIN A1c 8.3 %
[2021-02-19 15:13] LABS: CREATININE, URINE 61.5 MG/DL; MALB URINE SIEMENS 78.9 MG/L; MAU/CREAT RATIO 128.2 MCG/MG (0.0-30.0)
== END ==
LOC: M LAB REF 12:12 → M SFHCADAM 12:12
PROVIDERS: ATTEND Family Medicine
DX: I73.9 Peripheral vascular disease, unspecified (principal); I11.9 Hypertensive heart disease without heart failure; E78.5 Hyperlipidemia, unspecified; E11.51 Type 2 diabetes mellitus with diabetic peripheral angiopathy without gangrene

== ENCOUNTER → 2021-02-25 | Outpatient (REF) | payer MEDICARE ==
[2021-02-25 18:10] LABS: FOLATE 23.4 NG/ML (>5.4); FREE T4 1.11 NG/DL (0.76-1.46); THYROID STIMULATING HORMONE 0.422 uIU/ML (0.358-3.740)
== END ==
LOC: M SFHCADAM 15:57
PROVIDERS: ATTEND Family Medicine
DX: R41.3 Other amnesia (principal)
CPT/HCPCS: 82607; 82746; 84439; 84443; G0463

== ENCOUNTER → 2021-05-16 | Outpatient (CLI) | payer MEDICARE ==
--- NOTE | 2021-05-16 10:45 | REP ---
INDICATION: PAIN LEFT FOOT COMPARISON: None. TECHNIQUE: There are four views. FINDINGS: There is no fracture or dislocation. Mineralization and joint spaces are normal. There is a tiny 3 mm calcification superomedial to the navicular ossicle in the soft tissues, likely ligamentous calcification. There are no other calcifications or foreign bodies. IMPRESSION: Small ossicle in the soft tissues superomedial to the navicular, likely a ligamentous calcification. Otherwise, negative left foot. <Electronically signed by Adonay Salazar > 05/16/21 [id number]
== END ==
LOC: M RAD 10:06
PROVIDERS: ATTEND Physician Assistant
DX: M79.672 Pain in left foot (principal); M61.572 Other ossification of muscle, left ankle and foot

== ENCOUNTER → 2021-05-19 | Outpatient (REF) | payer MEDICARE ==
[~2021-05-19] MED LIST changes: -LISI2.5T2 PO; +LISI2.5T9 PO
[2021-05-19 13:18] LABS: CALCIUM LEVEL 9.4 MG/DL (8.8-10.2); CREATININE FOR GFR 1.37 MG/DL (0.70-1.30); GLOMERULAR FILTRATION RATE 53.9 (>42); POTASSIUM SERUM 5.1 MEQ/L (3.5-5.1)
[2021-05-19 13:19] LABS: HEMOGLOBIN A1c 6.9 %
== END ==
LOC: M SFHCADAM 08:47
PROVIDERS: ATTEND Family Medicine
DX: E11.51 Type 2 diabetes mellitus with diabetic peripheral angiopathy without gangrene (principal)

== ENCOUNTER → 2021-06-25 | Outpatient (REF) | payer MEDICARE ==
[~2021-06-25] MED LIST changes: +ALPH600C PO; +ASPI81TA26 PO; +ATOR1TAB19 PO; +ATOR40TA75 PO; +CIDA500T2 PO; +LANTINJ4 SC; -LANTINJ4 SUBQ; +METF-877 PO; +METF10004 PO; +OCUVTAB4 PO; +TRUL10IN SC; +XARE20TA PO
== END ==
LOC: M LAB REF 15:51
PROVIDERS: ATTEND Physician Assistant
DX: C44.311 Basal cell carcinoma of skin of nose (principal)
CPT/HCPCS: 11102; 88305; G0463

== ENCOUNTER 2021-06-29 12:53 | Inpatient (IN) | payer MEDICARE ==
[~2021-06-29] VITALS: Ht 177.8 cm; Wt 96.5 kg
[~2021-06-29 12:53] MED LIST changes: -ALPH600C PO; -ASPI81TA26 PO; -ATOR1TAB19 PO; -ATOR40TA75 PO; -CIDA500T2 PO; -METF-877 PO; -METF10004 PO; -OCUVTAB4 PO; -TRUL10IN SC; -XARE20TA PO
--- NOTE | 2021-06-29 13:33 | REP ---
INDICATION: ALTERED. COMPARISON: Comparison CT study of the brain is from May 31, 2008. TECHNIQUE: Helical scanning is acquired. 5 mm axial images were reformatted. Coronal MPR images were generated. FINDINGS: Bone window settings demonstrate an intact bony calvarium. There is heavy vascular calcification in the distal internal carotid arteries. Mild mucosal thickening is seen in 1 of the right posterior ethmoid air cells. Visualized paranasal sinuses are otherwise clear. No intraorbital abnormality is seen. The maxilla is edentulous. On soft tissue window settings, there is generalized volume loss. There is an old lacunar infarct in the right basal ganglia which is unchanged from the 2008 prior study. In addition, there are multiple parenchymal abnormalities which are new. Old-appearing foci of encephalomalacia are seen in the cerebellar hemispheres bilaterally. There is a fairly large area of periventricular low-density in overlying encephalomalacia in the left frontal lobe consistent with an old infarction. There is a larger area of periventricular and subcortical white matter low density in the right frontal and parietal lobe region. This spares the overlying brain parenchyma and may reflect acute versus subacute infarct. There is no visible intracranial mass effect. There is a tiny lacunar infarct in the anterior limb of the left internal capsule which was not present previously. There is no evidence of intracranial hemorrhage. No mass or midline shift is seen. IMPRESSION: No evidence of intracranial hemorrhage. There is a large area of subacute to acute appearing low-density change in the right frontal and parietal lobe region suggesting possibility of recent infarct. There is more old appearing encephalomalacia in the left frontal lobe. An old lacunar infarct is visible in the right basal ganglia. Vascular calcification and generalized atrophy are again noted. <Electronically signed by Rya Mascorro > 06/29/21 [id number]
[2021-06-29 15:30] LABS: APPEARANCE, URINE HAZY (CLEAR); BILIRUBIN, URINE AUTO NEGATIVE (NEGATIVE); BLOOD, URINE BLOOD NEGATIVE (NEGATIVE); COLOR, URINE YELLOW (YELLOW); GLUCOSE, URINE (UA) AUTO 3+ mg/dL (NEGATIVE); KETONE, URINE AUTO NEGATIVE (NEGATIVE); LEUKOCYTE ESTERASE, URINE AUTO NEGATIVE (NEGATIVE); NITRITE, URINE AUTO NEGATIVE (NEGATIVE); PROTEIN, URINE AUTO NEGATIVE (NEGATIVE); SPECIFIC GRAVITY URINE AUTO 1.024 (1.002-1.035); UROBILINOGEN, URINE AUTO 0.2 mg/dL (0.0-2.0)
[2021-06-29 15:32] LABS: BACTERIA, URINE AUTO NEGATIVE (NEGATIVE); RBC, URINE AUTO 0 /HPF (0-3); SQUAMOUS EPITHELIAL CELL UR AU 0 /HPF (0-6); WBC, URINE AUTO 0 /HPF (0-3)
[2021-06-29 15:34] LABS: HEMATOCRIT 44.8 % (42.0-52.0); HEMOGLOBIN 14.8 g/dl (13.5-17.5); MEAN CORPUSCULAR HEMOGLOBIN 29.6 pg (27.0-33.0); MEAN CORPUSCULAR VOLUME 89.6 fl (80.0-96.0); PLATELET COUNT, AUTOMATED 243 10^3/uL (150-450); WHITE BLOOD COUNT 3.8 10^3/uL (4.0-10.0)
[2021-06-29 16:04] LABS: BLOOD UREA NITROGEN 26 MG/DL (7-18); CALCIUM LEVEL 11.5 MG/DL (8.8-10.2); CARBON DIOXIDE LEVEL 27 MEQ/L (21-32); CHLORIDE LEVEL 106 MEQ/L (98-107); CREATININE FOR GFR 1.61 MG/DL (0.70-1.30); GLOMERULAR FILTRATION RATE 44.8 (>42); GLUCOSE, FASTING 90 MG/DL (70-100); POTASSIUM SERUM 5.2 MEQ/L (3.5-5.1); SODIUM LEVEL 140 MEQ/L (136-145)
--- NOTE | 2021-06-29 16:46 | REP ---
INDICATION: altered mental status. COMPARISON: 04/07/2010 TECHNIQUE: Single portable AP view of the chest was performed. FINDINGS: No acute infiltrate is seen. The heart is mildly enlarged. The mediastinal silhouette is unchanged. Metallic clips are seen overlying the right hemithorax. IMPRESSION: No acute pulmonary disease. <Electronically signed by Adonay Bynum > 06/29/21 [id number]
[2021-06-29] MEDS ORDERED: NS 1,000 ML IV SCH (17:10)
[2021-06-29 17:47] LABS: ALT/SGPT 24 U/L (12-78); BILIRUBIN,DIRECT 0.2 MG/DL (0.0-0.2); BILIRUBIN,TOTAL 1.3 MG/DL (0.2-1.0); CK-MB VALUE MASS 1.4 NG/ML (<3.6); CPK CREATINE PHOSPHOKINASE 51 U/L (39-308); FREE T4 1.43 NG/DL (0.76-1.46); MB/CK RELATIVE INDEX 2.75 (< OR =4); THYROID STIMULATING HORMONE 0.681 uIU/ML (0.358-3.740); TOTAL PROTEIN 6.4 GM/DL (6.4-8.2); TROPONIN I < 0.02 NG/ML (< 0.10)
[2021-06-29] MEDS ORDERED: METF10004 PO (19:15)
[2021-06-29] MEDS ORDERED: ATOR1TAB19 PO (19:15)
[2021-06-29] MEDS ORDERED: METF-877 PO (19:15)
[2021-06-29] MEDS ORDERED: TRUL10IN SC (19:15)
[2021-06-29] MEDS ORDERED: ASPI81TA26 PO (19:15)
[2021-06-29] MEDS ORDERED: OCUVTAB4 PO (19:15)
[2021-06-29] MEDS ORDERED: ALPH600C PO (19:15)
[2021-06-29] MEDS ORDERED: XARE20TA PO (19:15)
[2021-06-29] MEDS ORDERED: CIDA500T2 PO (19:15)
[2021-06-29] MEDS ORDERED: HOME MED LIST COMPLETE! XX SCH (19:20)
[2021-06-29 19:37] LABS: RSV AMPLIFICATION NEGATIVE (NEGATIVE)
[2021-06-29] MEDS ORDERED: NITROGLYCERIN 0.4 MG SUBL TABLET SL PRN (19:45)
[2021-06-29] MEDS ORDERED: PILL CUTTER 1 EACH XX PRN (20:25)
--- NOTE | 2021-06-29 20:49 | HPEPDOC ---
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 According to the patient's , beginning on 06/25, patient had issues beyond his baseline in terms of word finding which progressed to visual hallucinations on Tuesday and Tuesday and gait instability over the weekend. Patient's denies any falls but does report that the patient has needed more help in administering his home medications over the past few days. At baseline, he does have dementia but is able to ambulate under his own power for with the assistance of a cane and complete activities of daily living on his own. In the ED, CT head without contrast was done which showed "large area of subacute to acute appearing low-density change in the right frontal and parietal lobe region suggesting possible recent infarct." CT also showed encephalomalacia of the left frontal lobe as well as an old lacunar infarct in the right basal ganglia, vascular calcification and generalized atrophy. Relevant lab findings were slight leukopenia WBC 3.8, potassium 5.2, BUN 26/creatinine 1.61 (baseline appears to be about 1.3-1.4), calcium 11.5, total bilirubin 1.3, direct bilirubin 0.2, AST 49, ALT 24. Admitting hospitalist service contacted on-call neurologist (Dr. Glover) who recommended MRI of the brain and MRA of the brain to further assess for vasogenic edema with possible underlying mass due to the large area involved versus encephalomalacia versus CVA. Patient was subsequently admitted under the care of the hospitalist service primarily for further evaluation. PAST MEDICAL HISTORY: Coronary artery disease status post CABG, with NSTEMI in 2016 and cardiac catheterization with drug-eluting stent placed in the distal left main and proximal LAD CVA in December 2018 treated with TPA Intracardiac thrombus on echocardiogram in [place] on Xarelto Baseline dementia Hypertension 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 Hyperlipidemia Hypertension Significant peripheral arterial disease with multiple lower extremity bypass surgeries (follows with vascular surgery in [place]) CKD stage IIIa Grade 1 diastolic dysfunction seen on December 2020 echocardiogram PAST SURGICAL HISTORY: CABG x5 with postop osteomyelitis of the sternum that was debrided PTCA/stents LAD December 1988, May 2002 Colonoscopies (tubular adenoma 2011, 2016, 2001, 2005, 2008, July 2012, August 2017) Right SFA, [employer] 09/22 [facility] 09/22 Angioplasty with 2 left lower extremity stents Right lower extremity angioplasty in [place] PTCA x2 SOCIAL HISTORY: ('s name Daniela). Patient is a former smoker and is been roughly a year since he quit No history of heavy current or former alcohol use No history of current or former illegal drug use or IV drug use FAMILY HISTORY: Father: ; diabetes type 2, [place] Mother: ; Alzheimer's disease Son: History of hemochromatosis and transposition of the great arteries ALLERGIES: Please see below. REVIEW OF SYSTEMS: CONSTITUTIONAL: Denies recent fever, chills, night sweats, unintentional change in weight. HEENT: Denies blurry vision, double vision, tinnitus, dysphagia, or odynophagia. CARDIOVASCULAR: Denies chest pain, chest pressure, palpitation. RESPIRATORY: Denies dyspnea, cough, pleuritic chest pain. GASTROINTESTINAL: Denies abdominal pain, nausea, vomiting, blood in stool. GENITOURINARY: Denies dysuria or hematuria. MUSCULOSKELETAL: Denies any significant upper or lower extremity weakness NEUROLOGICAL: According the patient's reported difficulty word finding over the last 4 days with some intermittent episodes of visual hallucinations unst devan gait with no falls; does report baseline dementia HEMATOLOGIC/LYMPHATIC: Denies easy bleeding or bruising. Denies any new lumps or bumps HOME MEDICATIONS: Please see below. PHYSICAL EXAMINATION: VITAL SIGNS: Please see below GENERAL APPEARANCE: Pleasant elderly man lying upright in bed. He is alert only to self. Difficulties with word finding and short-term memory recall. Accompanied by his . HEENT: Normocephalic, atraumatic. Noninjected, anicteric sclera. Mild conjun ctival pallor. CARDIOVASCULAR: Regular rate, regular rhythm. Normal S1, S2. Heart sounds are quite distant making it difficult to appreciate for any murmurs. LUNGS: Decreased tidal volume with symmetric chest expansion. There are somewhat decreased breath sounds in the right lung base versus left lung base with no specific adventitious breath sounds appreciated. ABDOMEN: Soft, obese, nondistended. There is some mild tenderness of the right upper quadrant. There is no guarding or rigidity. Normoactive bowel sounds throughout. MUSCULOSKELETAL: Bilateral upper and lower extremities 5/5 muscle strength testing. EXTREMITIES: Patient has some partial amputations of right index middle and pin ky fingers. Bilateral lower extremities are free of pitting edema. 2+ radial pulses bilaterally. NEUROLOGICAL: Patient has sensation deficits bilaterally over the face upper extremities and lower extremities with no consistent pattern. He is alert only to self. He has difficulty at times following through his thoughts and has word finding difficulties as well. He understands commands and for the most part is able to execute them but does struggle with following through his thoughts on questions. Short-term memory recall is lacking. No dysdiadochokinesis. Cranial nerve testing revealed deficits of facial nerve bilaterally and mild left cranial nerve XI deficit. PSYCHIATRIC: Pleasant mood. Appropriate affect. LABORATORY DATA: See below. IMAGING: Head CT without contrast, 06/29/2021 FINDINGS: Bone window settings demonstrate an intact bony calvarium. There is heavy vascular calcification in the distal internal carotid arteries. Mild mucosal thickening is seen in 1 of the right posterior ethmoid air cells. Visualized paranasal sinuses are otherwise clear. No intraorbital abnormality is seen. The maxilla is edentulous. On soft tissue window settings, there is generalized volume loss. There is an old lacunar infarct in the right basal ganglia which is unchanged from the 2008 prior study. In addition, there are multiple parenchymal abnormalities which are new. Old-appearing foci of encephalomalacia are seen in the cerebellar hemispheres bilaterally. There is a fairly large area of periventricular low-density in overlying encephalomalacia in the left frontal lobe consistent with an old infarction. There is a larger area of periventricular and subcortical white matter low density in the right frontal and parietal lobe region. This spares the overlying brain parenchyma and may reflect acute versus subacute infarct. There is no visible intracranial mass effect. There is a tiny lacunar infarct in the anterior limb of the left internal capsule which was not present previously. There is no evidence of intracranial hemorrhage. No mass or midline shift is se en. IMPRESSION: No evidence of intracranial hemorrhage. There is a large area of subacute to acute appearing low-density change in the right frontal and parietal lobe region suggesting possibility of recent infarct. There is more old appearing encephalomalacia in the left frontal lobe. An old lacunar infarct is visible in the right basal ganglia. Vascular calcification and generalized atrophy are again noted. Portable chest x-ray, 06/29/2021 FINDINGS: No acute infiltrate is seen. The heart is mildly enlarged. The mediastinal silhouette is unchanged. Metallic clips are seen overlying the right hemithorax. IMPRESSION: No acute pulmonary disease. MICROBIOLOGY: Please see below. ASSESSMENT & PLAN: This is a 76-year-old male with remarkable history of CAD with stents as well as PAD status post lower extremity stents in bypass surgeries, CVA, intracardiac thrombus, insulin-dependent diabetes mellitus type 2, and baseline dimension who presented with 3 to 4 days of difficulty with word finding, gait instability, and visual hallucinations that are worse than his baseline. Found to have significant changes on CT of the right frontal and parietal lobe being worked up for possible infarct versus encephalomalacia versus vasogenic edema. #Right frontal and parietal lobe low-density changes on CT in the setting of altered mental status from baseline -Current etiology at this time is unknown as it is potentially subacute/acute CVA versus vasogenic edema from underlying mass versus encephalomalacia -Hospitalist team has consulted neurology who are not certain that this is a CVA as the cortex is spared in the setting of significant involvement of the parietal and frontal lobes. There is a concern for potentially underlying mass causing vasogenic edema. As such, MRI of the brain without contrast has been ordered as well as an MR angiogram of the brain without contrast. Carotid ultrasound bilaterally has been ordered as well and a repeat head CT for interval changes will be done tomorrow morning. -Per recommendation from neurology we will continue with patient's Xarelto but avoid any antiplatelet medications which includes his home 81 mg aspirin. -Patient has been placed on level 2 mechanical diet with a bedside swallow evaluation to be done in speech consultation. -Patient is on fall risk for cautions and assisted ambulation only. -Of note, patient does have a prior CVA in December 2018 for which he was treated with TPA #Elevated serum calcium -Initial serum calcium was 11.5 -Repeat metabolic panel to follow tomorrow morning; in the interim we have added intact parathyroid hormone, parathyroid hormone related peptide, ionized calcium, and vitamin D. Should repeat serum calcium/ionized calcium be elevated, consider SPEP. #Insulin-dependent diabetes mellitus type 2 -Initial glucose was 90 upon presentation -Home SGLT2 and Metformin being held -Patient is on 60 units long-acting at home we have switch this to 30 units tonight in the setting of his level 2 mechanical diet -Fingersticks before meals and at bedtime -Could certainly increase or decrease long-acting based on fingersticks/repeat serum glucose #Elevated creatinine -Initial creatinine of 1.61; baseline appears to be about 1.3-1.4 therefore this is borderline MAURY -Patient was started on fluids in the ED -Avoiding any nephrotoxic agents -Repeat metabolic panel tomorrow morning #History of coronary artery disease status post stents and NSTEMI along with intracardiac thrombus -Home Xarelto was continued; did not continue his aspirin due to risk of bleeding if intracranial issue is related to malignancy #History of hypertension -Home metoprolol and amlodipine continued #Suspected history of refill -Home famotidine continue DVT prophylaxis: Patient's home Xarelto was continued Disposition: Pending evaluation with neurology and further work-up of etiology for CT head findings. Vital Signs Vital Signs Date Time Temp Pulse Resp B/P (MAP) Pulse Ox O2 Delivery O2 Flow Rate FiO2 06/29/21 17:35 86 16 151/81 (104) 95 Room Air 06/29/21 12:53 97.1 Laboratory Data Labs 24H Laboratory Tests 2 06/29/21 15:13: Nucleated Red Blood Cells % (auto) 0.0, Urine Color YELLOW, Urine Appearance HAZY, Urine pH 5.0, Urine Specific Tell 1.024, Urine Protein NEGATIVE, Urine Glucose (Auto)(UA) 3+H, Urine Ketones (Auto) NEGATIVE, Urine Blood NEGATIVE, Urine Nitrite NEGATIVE, Urine Bilirubin NEGATIVE, Urine Urobilinogen 0.2, Urine Leukocyte Esterase (Auto) NEGATIVE, Urine WBC (Auto) 0, Urine RBC (Auto) 0, Urine Hyaline Casts (Auto) 0, Urine Bacteria (Auto) NEGATIVE, Urine Squamous Epithelial Cells 0, Urine Sperm (Auto) , Anion Gap 7L, Glomerular Filtration Rate 44.8, Calcium Level 11.5H, Total Bilirubin 1.3H, Direct Bilirubin 0.2, Aspartate Amino Transf (AST/SGOT) 49H, Alanine Aminotransferase (ALT/SGPT) 24, Alkaline Phosphatase 107, Total Creatine Kinase 51, Creatine Kinase MB 1.4, Creatine Kinase MB Relative Index 2.75, Troponin I < 0.02, Total Protein 6.4, Albumin 3.0L, Albumin/Globulin Ratio 0.9, Thyroid Stimulating Hormone (TSH) 0.681, Free Thyroxine 1.43 06/29/21 18:14: Coronavirus (COVID-19)(PCR) NEGATIVE, Influenza Type A (RT-PCR) NEGATIVE, Influenza Type B (RT-PCR) NEGATIVE, Respiratory Syncytial Virus (PCR) NEGATIVE CBC/BMP Laboratory Tests 06/29/21 15:13 Home Medications Scheduled Alpha Lipoic Acid (Alpha Lipoic Acid) 600 Mg Capsule, 600 MG PO BID Amlodipine Besylate (Norvasc) 2.5 Mg Tablet, 2.5 MG PO DAILY Aspirin (Aspirin EC) 81 Mg Tablet.dr, 81 MG PO DAILY Atorvastatin Calcium (Atorvastatin Calcium) 10 Mg Tablet, 10 MG PO DAILY Dapagliflozin Propanediol (Farxiga) 10 Mg Tablet, 10 MG PO DAILY Dulaglutide (Trulicity) 0.75 Mg/0.5 Ml Pen.injctr, 0.75 MG SC 1XWK TUEDAYS Famotidine (Pepcid AC) 10 Mg Tablet, 10 MG PO DAILY Glucosamine/Chondr Lassiter A Sod (Cidaflex Tablet) 1 Each Tablet, 1 TAB PO BID Insulin Glargine,Hum.rec.anlog (Lantus Solostar) 100 Unit/Ml Inj, 60 UNITS SC D AILY Metformin HCl (Metformin HCl) 1,000 Mg Tablet, 1,000 MG PO QPM Metformin HCl (Metformin HCl) 1,000 Mg Tablet, 1,500 MG PO DAILY Metoprolol Tartrate (Metoprolol Tartrate) 25 Mg Tab, 25 MG PO BID Multivitamin (Multivitamin) 1 Each Tablet, 1 EACH PO DAILY Rivaroxaban (Xarelto) 20 Mg Tablet, 20 MG PO QHS Vit A/Vit C/Vit E/Zinc/Copper (Preservision Areds Tablet) 1 Each Tablet, 1 TAB PO BID Scheduled PRN Nitroglycerin (Nitroglycerin) 0.4 Mg Sub, 0.4 MG SL ASDIRECTED PRN for CHEST PAIN Allergies Coded Allergies: Penicillins (Verified Allergy, Severe, hives, trouble breathing, 06/29/21) bee venom protein (honey bee) (Verified Allergy, Severe, trouble breathing, 06/29/21) erythromycin base (Verified Adverse Reaction, Mild, upset stomach, 06/29/21) A-FIB/CHADSVASC A-FIB History Current/History of A-Fib/PAF?: No Current PO Anticoag Therapy: Yes REEMA SHIPLEY D.O. Jun 29, 2021 20:49
[2021-06-29] MEDS: LEVEMIR (INSULIN DETEMIR) 1 UNITS/0.01ML SC SCH (21:00)
[2021-06-29] MEDS ORDERED: diphenhydrAMINE 25MG CAP PO ONE (22:20)
[2021-06-29] MEDS: RIVAROXABAN 20 MG TAB (XARELTO) PO SCH (22:27)
[2021-06-29] MEDS: METOPROLOL TART 25 MG TABLET PO SCH (22:27)
[2021-06-29 23:25] VITALS: BP 139/80
[2021-06-30] MEDS: D5W/0.9% SODIUM CHLORIDE 1,000 ML IV SCH ×2 (00:24→10:11)
[2021-06-30 06:00] VITALS: BP 140/80
[2021-06-30 06:14] LABS: HEMATOCRIT 44.2 % (42.0-52.0); HEMOGLOBIN 14.5 g/dl (13.5-17.5); MEAN CORPUSCULAR HEMOGLOBIN 29.2 pg (27.0-33.0); MEAN CORPUSCULAR HGB CONC 32.8 g/dl (32.0-36.5); MEAN CORPUSCULAR VOLUME 89.1 fl (80.0-96.0); PLATELET COUNT, AUTOMATED 249 10^3/uL (150-450); RED BLOOD COUNT 4.96 10^6/uL (4.30-6.10); WHITE BLOOD COUNT 4.1 10^3/uL (4.0-10.0)
[2021-06-30 06:40] LABS: ALBUMIN 3.1 GM/DL (3.2-5.2); BILIRUBIN,TOTAL 1.3 MG/DL (0.2-1.0); CALCIUM LEVEL 11.1 MG/DL (8.8-10.2); CREATININE FOR GFR 1.35 MG/DL (0.70-1.30); GLOMERULAR FILTRATION RATE 54.8 (>42); POTASSIUM SERUM 4.1 MEQ/L (3.5-5.1); TOTAL PROTEIN 6.6 GM/DL (6.4-8.2)
[2021-06-30 07:07] LABS: PHOSPHORUS LEVEL 3.3 MG/DL (2.5-4.9)
[2021-06-30] MEDS ORDERED: PNEUMOCOCCAL VACCINE 0.5ML SYRINGE (PNEUMOVAX 23) IM ONE (09:00)
[2021-06-30] MEDS ORDERED: FLUBLOK(EGG FREE)(QUAD)INFLUENZA VACC 0.5ML SYRINGE 18YRS & OLDER IM ONE (09:00)
--- NOTE | 2021-06-30 09:01 | REP ---
INDICATION: rt infarct vc vasogenic edema vs encephalomalacia on priorCT. COMPARISON: Comparison CT studies of the brain are from June 29, 2021 and May 31, 2008. TECHNIQUE: Helical scanning is acquired. 5 mm axial images were reformatted. Coronal MPR images were generated. FINDINGS: Vascular calcification is again noted at the skull base. There is minimal mucosal thickening in 1 of the posterior ethmoid air cells on the right. This is unchanged. Old lacunar infarcts are visible in the basal ganglia and there is an old appearing area of encephalomalacia in the left frontal lobe. These are unchanged from yesterday's CT study of the brain. The larger area of a of low-density in the right frontal parietal region seen yesterday is again noted also unchanged. There is relative sparing of the overlying garcia matter which raises question of a vasogenic edema versus ischemic low-density. I do not see evidence of a garcia matter or white matter mass lesion on this noncontrast CT study. The area is unchanged from the most recent prior study but new from 2007. There is generalized volume loss. There is no evidence of intracranial hemorrhage or other new finding. IMPRESSION: No change in CT findings from 06/29/2021 CT study. Large area of low-density in the right frontal parietal region. Recent ischemia versus possibly vasogenic edema. MRI scanning without and with IV contrast should provide better characterization. <Electronically signed by Ray Mascorro > 06/30/21 1412
--- NOTE | 2021-06-30 09:38 | REP ---
INDICATION: rt infarct vc vasogenic edema vs encephalomalacia on CT COMPARISON: 08/26/2007. TECHNIQUE: Real-time ultrasound evaluation and duplex Doppler interrogation of the extracranial carotid vasculature is performed. FINDINGS: There is moderate plaquing and narrowing in both carotid bulbs extending into the internal and external carotid arteries. Luminal narrowing is less than 50%. There is no evidence of hemodynamically significant stenosis of either internal carotid artery. Normal flow velocities are seen. The right vertebral artery demonstrates normal direction of flow. The left vertebral artery is not visualized. RIGHT LEFT Peak systolic velocity ICA 59.4 cm/s 78.4 cm/s End diastolic velocity ICA 16.3 cm/s 22.4 cm/s Peak systolic velocity CCA 90.4 cm/s 87.0cm/s Peak systolic velocity ECA 94.1 cm/s 116 cm/s ICA/CCA ratio 0.66 0.90 IMPRESSION: Bilateral luminal narrowing of the internal carotid arteries less than 50%. No evidence of hemodynamically significant stenosis. <Electronically signed by Adonay Bynum > 06/30/21 0934
[2021-06-30] MEDS: FAMOTIDINE 20 MG TAB PO SCH (10:12)
[2021-06-30] MEDS: ATORVASTATIN 20 MG TAB PO SCH (10:12)
[2021-06-30] MEDS: METOPROLOL TART 25 MG TABLET PO SCH ×2 (10:13→22:08)
[2021-06-30] MEDS: HumaLOG INSULIN (NovoLOG) PER UNIT SC SCH ×3 (12:00→21:00)
[2021-06-30] MEDS ORDERED: GLUCAGON INJ 1MG VIAL SC PRN (13:10)
[2021-06-30] MEDS ORDERED: GLUCOSE 4GM CHEW TABLET PO PRN (13:10)
[2021-06-30] MEDS ORDERED: DEXTROSE 50% 50 ML SYRINGE IV PRN (13:10)
--- NOTE | 2021-06-30 13:55 | ECGEPIP ---
[facility] - ED Test Date: 2021-06-29 Pat Name: TIFFANY MEZA Department: Room: [place] [address] Gender: Male Track Repairer: MARIUM : 1945 Requested By: BRIGIDA May Order Number: [id number] Reading MD: Sonia Haq Measurements Intervals Hudson Rate: 87 P: 48 MD: 190 QRS: 8 QRSD: 110 T: 208 QT: 352 QTc: 423 Interpretive Statements Sinus rhythm with occasional premature ventricular complexes Septal infarct , age undetermined T wave abnormality, consider anterolateral ischemia No prior Electronically Signed on 06-30-2021 13:54:42 EDT by Sonia Haq
--- NOTE | 2021-06-30 13:55 | IPNPDOC ---
Subjective Date Seen The patient was seen on 06/30/21. Subjective Chief Complaint/HPI Patient was seen and examined at bedside this morning. Patient is able to follow commands but has difficulty with word finding and at times confabulates his answers. He is unable to reliably undergo review of systems due to present stroke. Objective Physical Examination Other physical findings General: Lying in bed, no acute distress Head/Neck/Throat: Trachea midline, mucous membranes moist Eyes: Sclera anicteric, no erythema or discharge appreciated bilaterally Thorax: Normal respiratory effort on room air, lungs clear to auscultation bilaterally, no wheezes/rales/rhonchi Cardiovascular: Normal rate, regular rhythm, normal S1, S2; no S3, S4, rubs/gallops/murmurs Abdomen: Bowel sounds present, soft/nontender/nondistended Genitourinary: No CVA tenderness, no Gomez in place Musculoskeletal: Moving all extremities, no edema Skin: Warm, dry Neurologic: Unable to assess cranial nerves completely as patient was unable to follow commands clearly. His tongue was midline, and no facial droops were appreciated. Strength in the upper and lower extremities was 5/5. Sensation to gross touch was reportedly intact. Unable to assess cerebellar exam as patient was unable to follow/comprehend instructions. Assessment /Plan Assessment #CVA -Presented with difficulty with word finding, gait instability and visual hallucinations. CT scan of the brain noted a large area of subacute to acute appearing low-density change in right frontal and parietal lobe region suggesting possibility of a recent infarct vs vasogenic edema. As well, there is clinical infarct in the anterior limb of the left internal capsule still present during previous studies. There is also evidence of prior infarcts on CT scan of the brain -MRI of the brain for further delineation of brain pathology is pending. -We will discuss with neurology if patient needs to be on additional antiplatelet therapy. He was on aspirin and Xarelto already. -With underlying vascular pathology, it is unclear why patient is not on statin therapy. Start atorvastatin 40 mg daily. -Follow-up on echocardiogram with agitated saline -Follow-up PT/OT/speech recommendation #Coronary artery disease -Status post drug-eluting stents in 2016. Continue with aspirin, and beta- santiago therapy. Initiate atorvastatin. #History cardiac thrombosis -Continue with Xarelto #Insulin-dependent diabetes mellitus -Patient is started on a consistent carb diet. We will reintroduce his ambulatory basal regimen. Sliding scale. Hypoglycemic protocol. #Peripheral arterial disease -Status post bypass vascular surgery in the past. Continue with aspirin and statin therapy. #Chronic kidney disease -Baseline creatinine in 05/30 was 1.37 and presently at baseline. Avoid nephrotoxic medications. 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 #Hypertension -Continue with metoprolol and amlodipine. Considering his onset of symptoms that have been reported we are past the timeframe of permissive hypertension. #Dementia -Reorientation is encouraged. #DVT prophylaxis -He is on Xarelto Plan/VTE VTE Prophylaxis Ordered?: Yes VS, I&O, 24H, Fishbone Vital Signs/I&O Vital Signs Date Time Temp Pulse Resp B/P (MAP) Pulse Ox O2 Delivery O2 Flow Rate FiO2 06/30/21 10:13 102 131/72 06/30/21 06:00 97.0 18 96 Room Air I&O- Last 24 Hours up to 6 AM 06/30/21 06:00 Intake Total 1050 ml Output Total 0 ml Balance 1050 ml Laboratory Data 24H LABS Laboratory Tests 2 06/29/21 15:13: Nucleated Red Blood Cells % (auto) 0.0, Urine Color YELLOW, Urine Appearance HAZY, Urine pH 5.0, Urine Specific Dana 1.024, Urine Protein NEGATIVE, Urine Glucose (Auto)(UA) 3+H, Urine Ketones (Auto) NEGATIVE, Urine Blood NEGATIVE, Urine Nitrite NEGATIVE, Urine Bilirubin NEGATIVE, Urine Urobilinogen 0.2, Urine Leukocyte Esterase (Auto) NEGATIVE, Urine WBC (Auto) 0, Urine RBC (Auto) 0, Urine Hyaline Casts (Auto) 0, Urine Bacteria (Auto) NEGATIVE, Urine Squamous Epithelial Cells 0, Urine Sperm (Auto) , Anion Gap 7L, Glomerular Filtration Rate 44.8, Calcium Level 11.5H, Total Bilirubin 1.3H, Direct Bilirubin 0.2, Aspartate Amino Transf (AST/SGOT) 49H, Alanine Aminotransferase (ALT/SGPT) 24, Alkaline Phosphatase 107, Total Creatine Kinase 51, Creatine Kinase MB 1.4, Creatine Kinase MB Relative Index 2.75, Troponin I < 0.02, Total Protein 6.4, Albumin 3.0L, Albumin/Globulin Ratio 0.9, Thyroid Stimulating Hormone (TSH) 0.681, Free Thyroxine 1.43 06/29/21 18:14: Coronavirus (COVID-19)(PCR) NEGATIVE, Influenza Type A (RT-PCR) NEGATIVE, Influenza Type B (RT-PCR) NEGATIVE, Respiratory Syncytial Virus (PCR) NEGATIVE 06/29/21 21:52: Whole Blood Ionized Calcium 5.4H, Parathyroid Hormone (Intact) 11.8L 06/29/21 22:04: Bedside Glucose (Misc Panel) < 10*L 06/29/21 22:11: Bedside Glucose (Misc Panel) 58L 06/29/21 22:58: Bedside Glucose (Misc Panel) 74L 06/29/21 23:27: Bedside Glucose (Misc Panel) 79L 06/30/21 02:22: Bedside Glucose (Misc Panel) 85 06/30/21 05:18: Nucleated Red Blood Cells % (auto) 0.0, Anion Gap 7L, Glomerular Filtration Rate 54.8, Calcium Level 11.1H, Phosphorus Level 3.3, Total Bilirubin 1.3H, Aspartate Amino Transf (AST/SGOT) 34, Alanine Aminotransferase (ALT/SGPT) 23, Alkaline Phosphatase 110, Total Protein 6.6, Albumin 3.1L, Albumin/Globulin Ratio 0.9 06/30/21 11:52: Bedside Glucose (Misc Panel) 202H CBC/BMP Laboratory Tests 06/29/21 15:13 06/30/21 05:18 KATERYNA HUNTER M.D. Jun 30, 2021 13:32
[2021-06-30 14:00] VITALS: BP 158/87
[2021-06-30] MEDS ORDERED: QUEtiapine FUMARATE 12.5 MG HALF-TAB PO ONE (14:25)
[2021-06-30] MEDS: LEVEMIR (INSULIN DETEMIR) 1 UNITS/0.01ML SC SCH (21:00)
[2021-06-30 22:00] VITALS: BP 141/66
[2021-06-30] MEDS: RIVAROXABAN 20 MG TAB (XARELTO) PO SCH (22:06)
[2021-07-01 06:00] VITALS: BP 153/85
[2021-07-01 06:00] LABS: HEMATOCRIT 43.2 % (42.0-52.0); HEMOGLOBIN 14.4 g/dl (13.5-17.5); MEAN CORPUSCULAR HEMOGLOBIN 29.3 pg (27.0-33.0); MEAN CORPUSCULAR HGB CONC 33.3 g/dl (32.0-36.5); MEAN CORPUSCULAR VOLUME 87.8 fl (80.0-96.0); PLATELET COUNT, AUTOMATED 247 10^3/uL (150-450); RED BLOOD COUNT 4.92 10^6/uL (4.30-6.10); WHITE BLOOD COUNT 6.6 10^3/uL (4.0-10.0)
[2021-07-01 06:39] LABS: CALCIUM LEVEL 10.9 MG/DL (8.8-10.2); CREATININE FOR GFR 1.45 MG/DL (0.70-1.30); GLOMERULAR FILTRATION RATE 50.5 (>42); MAGNESIUM LEVEL 2.2 MG/DL (1.8-2.4); PHOSPHORUS LEVEL 3.4 MG/DL (2.5-4.9); POTASSIUM SERUM 3.8 MEQ/L (3.5-5.1); TROPONIN I 0.08 NG/ML (< 0.10)
[2021-07-01] MEDS: FAMOTIDINE 20 MG TAB PO SCH (08:28)
[2021-07-01] MEDS: ATORVASTATIN 20 MG TAB PO SCH (08:28)
[2021-07-01] MEDS: METOPROLOL TART 25 MG TABLET PO SCH ×2 (08:30→23:11)
[2021-07-01] MEDS: HumaLOG INSULIN (NovoLOG) PER UNIT SC SCH ×4 (08:31→21:00)
--- NOTE | 2021-07-01 09:32 | REP ---
INDICATION: f/u on previous scan. COMPARISON: Comparison made with prior CT studies from the 2 previous day's, 06/30/2021 and 06/29/2021. TECHNIQUE: Helical scanning is acquired. 5 mm axial images were reformatted. Coronal MPR images were generated. FINDINGS: There is no evidence of intracranial hemorrhage. There has been no change in the extent or appearance of the periventricular and subcortical white matter low density pattern in the right parietal and left frontal lobes in the interval since the 06/29/2021 study. Old basal ganglia lacunar infarcts are again seen unchanged. IMPRESSION: No change from 06/29/2021. <Electronically signed by Ray Mascorro > 07/01/21 0900
--- NOTE | 2021-07-01 11:13 | IPNPDOC ---
Subjective Date Seen The patient was seen on 07/01/21. Subjective Chief Complaint/HPI Patient was seen and examined at bedside this morning. He difficulty finding words and feels that his speech with at times confabulated words. He is able to follow commands of asked repetitively or shown. Unreliable review of systems due to present mental status. Objective Physical Examination Other physical findings General: Lying in bed, no acute distress Head/Neck/Throat: Trachea midline, mucous membranes moist Eyes: Sclera anicteric, no erythema or discharge appreciated bilaterally Thorax: Normal respiratory effort on room air, lungs clear to auscultation bilaterally, no wheezes/rales/rhonchi Cardiovascular: Normal rate, regular rhythm, normal S1, S2; no S3, S4, rubs/gallops/murmurs Abdomen: Bowel sounds present, soft/nontender/nondistended Genitourinary: No CVA tenderness, no Gomez in place Musculoskeletal: Moving all extremities, no edema Skin: Warm, dry Neurologic: Awake, alert cardiomyopathy oriented to self. He has difficulty with word findings he needs told repetitively to follow commands or be shown. There was no new focal deficit appreciated on exam today. Assessment /Plan Assessment #CVA -Presented with difficulty with word finding, gait instability and visual hallucinations. CT scan of the brain noted a large area of subacute to acute appearing low-density change in right frontal and parietal lobe region suggesting possibility of a recent infarct vs vasogenic edema. As well, there is clinical infarct in the anterior limb of the left internal capsule still present during previous studies. There is also evidence of prior infarcts on CT scan of the brain -MRI of the brain for further delineation of brain pathology was not able to get done because of his lower extremity stents. A call placed to Dr. Morejon's office at [phone] to find out if the stents are compatible for MRI in the lower extremities. We will change the MRI without contrast to with. Although, he has chronic kidney disease his GFR being above 40 will allow for this, this was discussed with the nephrology team. -discussed with neurology if antiplatelet therapy needs to be adjusted, plan is to hold off until we get further imaging. -With underlying vascular pathology, it is unclear why patient is not on statin therapy. Start atorvastatin 40 mg daily. -Follow-up on echocardiogram with agitated saline -Follow-up PT/OT/speech recommendation -Appreciate neurology recommendations. #Coronary artery disease -Status post drug-eluting stents in 2016. Continue with aspirin, and beta- santiago therapy. Initiate atorvastatin. #History cardiac thrombosis -Continue with Xarelto #Insulin-dependent diabetes mellitus -Patient is started on a consistent carb diet. We will reintroduce his ambulatory basal regimen. Sliding scale. Hypoglycemic protocol. #Peripheral arterial disease -Status post bypass vascular surgery in the past. Continue with aspirin and statin therapy. #Chronic kidney disease -Baseline creatinine in 05/30 was 1.37 and presently at baseline. Avoid nephrotoxic medications. 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 #Hypertension -Continue with metoprolol and amlodipine. Considering his onset of symptoms that have been reported we are past the timeframe of permissive hypertension. #Dementia -Reorientation is encouraged. #DVT prophylaxis -He is on Xarelto Plan/VTE VTE Prophylaxis Ordered?: Yes VS, I&O, 24H, Fishbone Vital Signs/I&O Vital Signs Date Time Temp Pulse Resp B/P (MAP) Pulse Ox O2 Delivery O2 Flow Rate FiO2 07/01/21 08:30 99 149/84 07/01/21 06:00 97.5 18 96 Room Air I&O- Last 24 Hours up to 6 AM 07/01/21 05:59 Intake Total 1420 ml Output Total 0 ml Balance 1420 ml Laboratory Data 24H LABS Laboratory Tests 2 06/30/21 11:52: Bedside Glucose (Misc Panel) 202H 06/30/21 17:38: Bedside Glucose (Misc Panel) 148H 06/30/21 20:29: Bedside Glucose (Misc Panel) 178H 07/01/21 00:05: Bedside Glucose (Misc Panel) 141H 07/01/21 05:41: Nucleated Red Blood Cells % (auto) 0.0, Anion Gap 7L, Glomerular Filtration Rate 50.5, Calcium Level 10.9H, Phosphorus Level 3.4, Magnesium Level 2.2, Troponin I 0.08# CBC/BMP Laboratory Tests 07/01/21 05:41 KATERYNA HUNTER M.D. Jul 01, 2021 10:38
[2021-07-01 14:00] VITALS: BP 136/84
--- NOTE | 2021-07-01 20:50 | ECHO ---
ECHOCARDIOGRAM DATE OF PROCEDURE: 07/01/2021 Age: 76 Gender: Male Height: 70 inches Weight: 213 pounds Body surface area: 2.14 m2 Inpatient, [facility], room 4205. REFERRING PROVIDER: Nitin Recinos M.D. INDICATION: Cerebrovascular accident (CVA), cardiac source of embolic material? MEASUREMENTS: 2D Measurements: RV - Not well visualized. LV - 5.3 cm Septum 1.3 cm Posterior wall 1.3 cm Aortic root 3.7 cm LA - 4.6 cm LVEF 50% Doppler Measurements: AV - 1.23 m/s LVOT - 0.8 m/s LVOT diameter 2.1 cm MV-E 30, A 67, E/A ratio 0.4 Early mitral deceleration time 238 msec E prime medial 5.4 A prime medial 8.4 E prime lateral 11.4 PV - Not visualized. RVSP - Could not be determined. IVC - 1.1 cm COMMENTS: Normal sinus rhythm without intraventricular conduction disturbance. Technically difficult study in light of the patient's body habitus, but some diagnostically useful information was still obtained. M-mode and 2-dimensional echocardiography was performed with pulse, continuous wave, color flow, and tissue Doppler studies. Mild left ventricular hypertrophy with obvious akinetic to slightly dyskinetic apex, but other left ventricular fang segments move normally with perhaps mild impairment of global resting systolic function. Mildly dilated left atrium with grade 1 LV diastolic dysfunction but currently normal estimated mean left atrial pressure. Right heart chamber sizes were not visualized. IVC size was somewhat reduced with adequate collapse against an elevated central venous pressure. Normal aortic dimensions. Mild aortic valvular sclerosis without functional abnormality. Mild to moderate mitral annular calcification without apparent functional abnormality. We could not visualize thrombus within the apex of the left ventricle at this time. No pericardial effusion. There is a significant likelihood that his cerebrovascular accident was related to thrombus that had been in the patient's aneurysmal segment.
[2021-07-01] MEDS: LEVEMIR (INSULIN DETEMIR) 1 UNITS/0.01ML SC SCH (21:00)
[2021-07-01 22:00] VITALS: BP 134/82
[2021-07-01] MEDS ORDERED: PROHANCE 279.3MG/ML 15ML VIAL As Ordered ONE (22:26)
[2021-07-01] MEDS: RIVAROXABAN 20 MG TAB (XARELTO) PO SCH (23:11)
--- NOTE | 2021-07-02 00:40 | REPVR ---
PROCEDURE INFORMATION: Exam: MR Head Without and With Contrast Exam date and time: 07/01/2021 10:59 PM Age: 76 years old Clinical indication: Altered mental status/memory loss; Confusion or disorientation; Additional info: With and without contrast TECHNIQUE: Imaging protocol: MR of the head without and with intravenous contrast. Contrast material: PROHACE; Contrast volume: 8 ml; Contrast route: INTRAVENOUS (IV); COMPARISON: 1. CT Head without contrast 2021-07-01 09:[address] Head without contrast 2021-06-30 08:15 FINDINGS: Brain: Moderate severe cerebral volume loss. Chronic bilateral inferior cerebellar infarcts, left more so than right. Chronic left frontal, and right posterior frontal, parietal chronic infarcts. Chronic deep garcia structure lacunar infarcts. No abnormal cerebral enhancement. No brain parenchymal diffusion restriction to suggest acute ischemia or infarction. Moderate to severe chronic FLAIR hyperintense cerebral white matter disease. Cerebral ventricles: Normal. No ventriculomegaly. Bones/joints: Unremarkable. Paranasal sinuses: Normal as visualized. No acute sinusitis. Mastoid air cells: Normal as visualized. No mastoid effusion. Orbital cavity: Unremarkable. Soft tissues: Unremarkable. IMPRESSION: 1. No acute intracranial abnormality. Severe chronic involutional and ischemic changes. 2. Chronic bilateral inferior cerebellar infarcts, left more so than right. Chronic left frontal, and right posterior frontal, parietal chronic infarcts. Chronic deep garcia structure lacunar infarcts. Electronically signed by: Nikita Grimes On 07/02/2021 00:40:00 AM
--- NOTE | 2021-07-02 00:47 | REPVR ---
PROCEDURE INFORMATION: Exam: MRA Head Without Contrast; Arteriography Exam date and time: 07/01/2021 10:59 PM Age: 76 years old Clinical indication: Pain; Headache; Additional info: RT infarct vc vasogenic edema vs encephalomalacia on CT TECHNIQUE: Imaging protocol: Magnetic resonance angiography head without contrast. Exam focused on the arteries. COMPARISON: 1. CT Head without contrast 2021-07-01 09:[address] Head without contrast 2021-06-30 08:15 FINDINGS: ANTERIOR CIRCULATION: Right internal carotid artery: Mild right ICA atherosclerotic irregularity. Right middle cerebral artery: No occlusion or significant stenosis. No aneurysm. Right anterior cerebral artery: No occlusion or significant stenosis. No aneurysm. Left internal carotid artery: Mild left ICA atherosclerotic irregularity. Left middle cerebral artery: No occlusion or significant stenosis. No aneurysm. Left anterior cerebral artery: No occlusion or significant stenosis. No aneurysm. POSTERIOR CIRCULATION: Right vertebral artery: No occlusion or significant stenosis. No aneurysm. Left vertebral artery: Occluded or severely stenotic left vertebral artery. Basilar artery: No occlusion or significant stenosis. No aneurysm. Right posterior cerebral artery: Patent right CARBIDE POWDER PROCESSOR. Mild right CARBIDE POWDER PROCESSOR origin stenosis. Left posterior cerebral artery: Patent moderate left posterior communicating artery. IMPRESSION: Occluded or severely stenotic left vertebral artery. Probably chronic. Electronically signed by: Nikita Grimes On 07/02/2021 00:47:22 AM
[2021-07-02 06:00] VITALS: BP 139/76
--- NOTE | 2021-07-02 06:09 | ECGEPIP ---
[facility] Test Date: 2021-07-01 Pat Name: TIFFANY MEZA Department: Room: [place] [address] Gender: Male Technician Preventative Medicine: TERE : 1945 Requested By: KATERYNA Guevara Order Number: [id number] Reading MD: Marlee Fountain Measurements Intervals [place] Rate: 88 P: 64 DE: 192 QRS: -5 QRSD: 106 T: -17 QT: 356 QTc: 430 Interpretive Statements Normal sinus rhythmvLAE Anteroseptal infarct , age undetermined T wave abnormality, consider lateral ischemia ECTOPY ABSENT C/W 06/29/21 Electronically Signed on 07-02-2021 6:09:15 EDT by Marlee Fountain
[2021-07-02 06:11] LABS: HEMATOCRIT 43.3 % (42.0-52.0); HEMOGLOBIN 14.6 g/dl (13.5-17.5); MEAN CORPUSCULAR HEMOGLOBIN 29.8 pg (27.0-33.0); MEAN CORPUSCULAR HGB CONC 33.7 g/dl (32.0-36.5); MEAN CORPUSCULAR VOLUME 88.4 fl (80.0-96.0); PLATELET COUNT, AUTOMATED 250 10^3/uL (150-450); WHITE BLOOD COUNT 5.4 10^3/uL (4.0-10.0)
[2021-07-02 06:37] LABS: BLOOD UREA NITROGEN 27 MG/DL (7-18); CALCIUM LEVEL 11.3 MG/DL (8.8-10.2); CARBON DIOXIDE LEVEL 27 MEQ/L (21-32); CHLORIDE LEVEL 109 MEQ/L (98-107); CREATININE FOR GFR 1.59 MG/DL (0.70-1.30); GLOMERULAR FILTRATION RATE 45.4 (>42); GLUCOSE, FASTING 137 MG/DL (70-100); MAGNESIUM LEVEL 2.2 MG/DL (1.8-2.4); PHOSPHORUS LEVEL 3.5 MG/DL (2.5-4.9); POTASSIUM SERUM 4.2 MEQ/L (3.5-5.1); SODIUM LEVEL 144 MEQ/L (136-145)
[2021-07-02 08:00] VITALS: BP 158/88
[2021-07-02] MEDS: HumaLOG INSULIN (NovoLOG) PER UNIT SC SCH ×4 (08:45→20:13)
[2021-07-02] MEDS: ATORVASTATIN 20 MG TAB PO SCH ×2 (08:46→09:01)
[2021-07-02] MEDS: METOPROLOL TART 25 MG TABLET PO SCH ×2 (08:47→20:16)
[2021-07-02] MEDS: FAMOTIDINE 20 MG TAB PO SCH ×2 (08:48→09:00)
[2021-07-02 10:45] VITALS: BP 140/82
--- NOTE | 2021-07-02 11:24 | CR ---
CONSULTATION DATE: 06/30/2021 REASON FOR CONSULTATION: Suspected stroke. HISTORY OF PRESENT ILLNESS: Efren Cárdenas is a 76-year-old male with past medical history significant for severe vascular disease with coronary artery disease with NSTEMI in 2016 with drug-eluting stents in the distal left main and proximal LAD, CVA in December, treated with TPA, cardiac thrombus on echo on Xarelto and type 2 diabetes, insulin dependent with neuropathy with multiple lower extremity vascular procedures for peripheral vascular disease. The patient has CKD stage 3. The patient was brought to the hospital with symptoms of confusion, progressed to visual hallucinations on Tuesday and Tuesday, difficulty with his gait. The patient was having some difficulty with speech and language. He does have baseline dementia. He was not noted to have any lateralizing symptoms of weakness on either side of the body. CT of the head was completed, showing a large area of subacute to acute appearing low density changes to the right frontal and parietal regions suggesting possible recent infarct. The patient was treated for possible stroke. It took a couple days for him to get an MRI which confirmed that was no stroke. The patient did not have any weakness in either arm or leg to suggest stroke. There was no underlying mass lesion noted. Areas suspected of possible vasogenic edema turned out to be severe small vessel ischemic disease, asymmetric in nature. The patient will remain on all current medications. He will likely need PT, OT. He denies any weakness, numbness, headache, change in vision. He does have some difficulty with balance. PAST MEDICAL HISTORY: 1. Coronary artery disease, status post CABG with NSTEMI in 2016, drug-eluting stent in distal left main and proximal LAD, CVA in December, treated with TPA. Intracardiac thrombus on echocardiogram in [place] on Xarelto. 2. Baseline dementia. 3. Hypertension. 4. 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 5. Hyperlipidemia. 6. Hypertension. 7. CKD stage 3. 8. Peripheral arterial disease. 9. Bypass surgeries in the lower extremities. 10. Diastolic dysfunction, December 2020. PAST SURGICAL HISTORY: 1. CABG x5 with postop osteomyelitis of the sternum that was debrided. 2. PTCA stents, LAD, December, 1988, May,. 3. Colonoscopies, tubular adenoma, 2011, 2016, 2001, 2005, 2008, July, 2011, August, 2016. 4. Right SFA MARKET RESEARCH LEAD, September,, [facility], 09/2014. 5. Angioplasty with two left lower extremity stents. 6. Right lower extremity angioplasty in [place]. 7. PTCA x2. SOCIAL HISTORY: The patient is former smoker, denies use of any alcohol or illicit drugs. FAMILY HISTORY: Mother with Alzheimer's dementia. ALLERGIES: PENICILLIN, BEE VENOM, ERYTHROMYCIN. HOME MEDICATIONS: 1. Alpha-lipoic acid. 2. Amlodipine. 3. Aspirin. 4. Atorvastatin. 5. Farxiga. 6. Trulicity. 7. Pepcid. 8. Glucosamine chondrotin. 9. Insulin. 10. Metformin. 11. Metoprolol. 12. Multivitamin. 13. Xarelto 20 mg 14. Nitroglycerin p.r.n. PHYSICAL EXAMINATION: Blood pressure 115/87, pulse rate 90, respiratory rate 18, temperature 98.9 degrees Fahrenheit, oxygenation 98% on room air. Patient is oriented to his name and location. He has difficulty repeating. He has some perseveration. He has mild aphasia. There is no facial weakness. Cranial nerves are otherwise intact. Extraocular movements are intact. Tongue is midline. Hearing is equal to finger rub. There is no loss of sensation, V1 to V3. There is no loss of sensation to light touch in the face, arms and legs. There is no gross ataxia or dysmetria. Strength is 5/5 including deltoid, biceps, triceps, hand aquaculture program director, quadriceps, anterior tibialis. The patient has some apraxia, inability to fully follow commands fully in the left side as well as he does the right. He had some left and right confusion. ASSESSMENT: Advanced dementia. Advanced small vessel ischemic disease of the brainstem. History of prior stroke. No evidence of brain tumor or vasogenic edema confirmed on MRI. No evidence of acute stroke confirmed on MRI. PLAN: Continue Xarelto and aspirin. Patient can follow up in the outpatient neurology clinic after discharge. Consider PT, OT evaluation and rehab evaluation.
[2021-07-02 14:00] VITALS: BP 137/82
[2021-07-02 20:00] VITALS: BP 134/82
[2021-07-02] MEDS: RIVAROXABAN 20 MG TAB (XARELTO) PO SCH (20:15)
--- NOTE | 2021-07-02 20:50 | IPNPDOC ---
Text Note Date of Service The patient was seen on 07/02/21. NOTE Hospitalist Progress Note Subjective: Patient was sitting upright in the chair today. This is my first time meeting him, but he actually does seem to respond to questioning fairly well, although he is a terrible historian. He reports that he is feeling well, he does not have any pain or headache. He thinks that he work with physical therapy today, but he cannot remember what they did. Only on occasion does he have significant difficulty with word finding. I did call and speak with his and give her an update today as well. Objective: General: Awake, alert, Not in any acute distress. HEENT: Head normocephalic, atraumatic, sclera are nonicteric. Hearing is grossly intact to conversation. Respiratory: Clear to auscultation bilaterally with no wheezes, rales, or rh onchi. Cardiovascular: Regular rate and rhythm, with no rubs, gallops, or murmur. Abdomen: Soft, nontender, nondistended, no hepatosplenomegaly appreciated. Bowel sounds present. Extremities: 2+ pulses in the radial and dorsalis pedis bilaterally. No evidence of clubbing or cyanosis. Assessment/Plan: CVA -Neurology has been consulted, their input is greatly appreciated -Continue Xarelto, atorvastatin, and aspirin -Continue PT, OT, speech therapy Coronary artery disease -Continue aspirin, beta-santiago, and atorvastatin History of cardiac thrombosis -This is likely the etiology of his embolus causing CVA -Continue anticoagulation with Xarelto Insulin-dependent diabetes mellitus -Continue basal and sliding scale insulin Peripheral arterial disease -Status post bypass and vascular surgery in the past -Continue aspirin and statin Chronic kidney disease -Stable, chronic, avoid nephrotoxic medications, control diabetes Hypertension -Continue metoprolol and amlodipine Dementia -Stable, chronic DVT prophylaxis -Xarelto VS,Fishbone, I+O VS, Fishbone, I+O Laboratory Tests 07/02/21 05:41 Vital Signs Date Time Temp Pulse Resp B/P (MAP) Pulse Ox O2 Delivery O2 Flow Rate FiO2 07/02/21 20:16 102 134/82 07/02/21 14:00 97.7 16 98 Room Air I&O- Last 24 Hours up to 6 AM 07/02/21 06:00 Intake Total 530 ml Balance 530 ml LUZMARIA SWEENEY DO Jul 02, 2021 20:50
[2021-07-03 06:00] VITALS: BP 138/82
[2021-07-03] MEDS: HumaLOG INSULIN (NovoLOG) PER UNIT SC SCH ×2 (08:38→12:22)
[2021-07-03 08:40] VITALS: BP 138/82
[2021-07-03] MEDS: ATORVASTATIN 20 MG TAB PO SCH (08:40)
[2021-07-03] MEDS: METOPROLOL TART 25 MG TABLET PO SCH (08:40)
[2021-07-03] MEDS: FAMOTIDINE 20 MG TAB PO SCH (08:40)
[2021-07-03] MEDS ORDERED: ASPIRIN 81MG ENTERIC TABLET PO SCH (09:00)
[2021-07-03 09:12] LABS: TOTAL PROTEIN 6.2 GM/DL (6.4-8.2)
[2021-07-03 12:56] LABS: ALBUMIN 3.25 GM/DL (3.29-5.55); ALBUMIN % 52.4 % (55.8-66.1); ALPHA-1-GLOBULIN % 6.8 % (2.9-4.9); ALPHA-1-GLOBULINS 0.42 GM/DL (0.17-0.41); ALPHA-2-GLOBULINS 1.09 GM/DL (0.42-0.99); ALPHA-2-GLOBULINS % 17.6 % (7.1-11.8); BETA-1-GLOBULINS 0.36 GM/DL (0.28-0.60); BETA-1-GLOBULINS % 5.8 % (4.7-7.2); BETA-2-GLOBULINS 0.42 GM/DL (0.19-0.55); BETA-2-GLOBULINS % 6.7 % (3.2-6.5); GAMMA GLOBULIN % 10.7 % (11.1-18.8); GAMMA GLOBULINS 0.66 GM/DL (0.65-1.58)
[2021-07-03] MEDS ORDERED: ATOR40TA75 PO (13:23)
--- NOTE | 2021-07-03 20:11 | DS.PDOC ---
Discharge Summary General Date of Admission Jun 29, 2021 at 12:54 Date of Discharge 07/03/2021 Discharge Summary PRIMARY CARE PHYSICIAN: Dr. Elma MD ATTENDING AT TIME OF DISCHARGE: Dr. Luzmaria Vallejo, DISCHARGE DIAGNOS(E)S: Severe small vessel ischemic disease, perhaps causing TIA, but no acute stroke on MRI Coronary artery disease Peripheral vascular disease History of cardiac thrombosis Diabetes mellitus type 2, insulin-dependent Chronic kidney disease Hypertension Dementia HPI & HOSPITAL COURSE: Presented to the emergency department on 06/29/2021 with difficulty word finding and gait instability. There were concerns that he had a stroke, therefore CT scan was ordered which showed subacute to acute low-density changes, therefore he was treated for possible stroke. It took a couple of days to get him MRI due to not knowing whether some of his stents were MRI compatible. Once this was verified an MRI was performed which confirmed that there was no stroke. What had been presumed to be vasogenic edema turned out to be severe small vessel ischemic disease, which is curiously asymmetric in nature. The only changes medications is that his a atorvastatin was increased from 10 mg daily to 40 mg daily, but otherwise we will continue with his same dose of antihypertensives, aspirin, Xarelto. PHYSICAL EXAMINATION ON DISCHARGE: GENERAL: Awake, alert. He does have some difficulty with word finding. CARDIOVASCULAR EXAMINATION: Regular rate and rhythm, with no rubs, gallops, or murmur. RESPIRATORY EXAMINATION: Clear to auscultation bilaterally with no wheezes, rales, or rhonchi. ABDOMINAL EXAMINATION: Soft, nontender, nondistended. Bowel sounds present. EXTREMITIES: No clubbing or edema noted. 2+ pulses in the radial bilaterally. DISPOSITION: Home DISCHARGE INSTRUCTIONS: Follow-up with primary care physician within 7-14 days. Diet and activity as tolerated. Recommend assistance with ambulation.. If symptoms return, or if you experience worsening of your symptoms, please call your doctor or return to the emergency department. Vital Signs/I&Os Vital Signs Date Time Temp Pulse Resp B/P (MAP) Pulse Ox O2 Delivery O2 Flow Rate FiO2 07/03/21 08:40 101 138/82 07/03/21 06:00 97.5 18 93 Room Air I&O- Last 24 Hours up to 6 AM 07/03/21 06:00 Intake Total 860 ml Output Total 0 ml Balance 860 ml Laboratory Data Labs 24H Laboratory Tests 2 07/03/21 06:25: Bedside Glucose (Misc Panel) 210H 07/03/21 11:32: Bedside Glucose (Misc Panel) 235H FSBS Laboratory Tests Test 07/03/21 06:25 07/03/21 11:32 Range/Units Bedside Glucose (Misc Panel) 210 235 83-110 MG/DL Discharge Medications Scheduled Alpha Lipoic Acid (Alpha Lipoic Acid) 600 Mg Capsule, 600 MG PO BID, (Reported) Amlodipine Besylate (Norvasc) 2.5 Mg Tablet, 2.5 MG PO DAILY, (Reported) Aspirin (Aspirin EC) 81 Mg Tablet.dr, 81 MG PO DAILY, (Reported) Atorvastatin Calcium (Atorvastatin Calcium) 40 Mg Tablet, 1 TAB PO DAILY Dapagliflozin Propanediol (Farxiga) 10 Mg Tablet, 10 MG PO DAILY, (Reported) Dulaglutide (Trulicity) 0.75 Mg/0.5 Ml Pen.injctr, 0.75 MG SC 1XWK, (Reported) MONDAYS Famotidine (Pepcid AC) 10 Mg Tablet, 10 MG PO DAILY, (Reported) Glucosamine/Chondr Lassiter A Sod (Cidaflex Tablet) 1 Each Tablet, 1 TAB PO BID, (Reported) Insulin Glargine,Hum.rec.anlog (Lantus Solostar) 100 Unit/Ml Inj, 60 UNITS SC DAILY, (Reported) Metformin HCl (Metformin HCl) 1,000 Mg Tablet, 1,000 MG PO QPM, (Reported) Metformin HCl (Metformin HCl) 1,000 Mg Tablet, 1,500 MG PO DAILY, (Reported) Metoprolol Tartrate (Metoprolol Tartrate) 25 Mg Tab, 25 MG PO BID, (Reported) Multivitamin (Multivitamin) 1 Each Tablet, 1 EACH PO DAILY, (Reported) Rivaroxaban (Xarelto) 20 Mg Tablet, 20 MG PO QHS, (Reported) Vit A/Vit C/Vit E/Zinc/Copper (Preservision Areds Tablet) 1 Each Tablet, 1 TAB PO BID, (Reported) Scheduled PRN Nitroglycerin (Nitroglycerin) 0.4 Mg Sub, 0.4 MG SL ASDIRECTED PRN for CHEST PAIN, (Reported) Allergies Coded Allergies: Penicillins (Verified Allergy, Severe, hives, trouble breathing, 06/29/21) bee venom protein (honey bee) (Verified Allergy, Severe, trouble breathing, 06/29/21) erythromycin base (Verified Adverse Reaction, Mild, upset stomach, 06/29/21) LUZMARIA VALLEJO DO Jul 03, 2021 20:11
[2021-07-06 21:07] LABS: PTH RELATED PEPTIDE < 2.0 pmol/L (.); VITAMIN D 1,25 DIHYDROXY 299.1 pg/mL (19.9-79.3)
== END 2021-07-03 15:00 | disposition home health service (06) | DRG 300 ==
LOC: M ED 12:53 → M ED INP 12:54 → ENRESERV 22:17 → M MSPAV 23:23
PROVIDERS: ADMIT Family Medicine; ATTEND Neuromusculoskeletal Medicine & OMM
DX: I73.9 Peripheral vascular disease, unspecified (principal); G45.9 Transient cerebral ischemic attack, unspecified; R44.0 Auditory hallucinations; R44.1 Visual hallucinations; I25.10 Atherosclerotic heart disease of native coronary artery without angina pectoris; Z95.5 Presence of coronary angioplasty implant and graft; Z86.73 Personal history of transient ischemic attack (TIA), and cerebral infarction without residual deficits; E11.22 Type 2 diabetes mellitus with diabetic chronic kidney disease; E11.42 Type 2 diabetes mellitus with diabetic polyneuropathy; N18.31 Chronic kidney disease, stage 3a; F03.90 Unspecified dementia, unspecified severity, without behavioral disturbance, psychotic disturbance, mood disturbance, and anxiety; R26.89 Other abnormalities of gait and mobility; Z66 Do not resuscitate; R41.82 Altered mental status, unspecified; Z79.4 Long term (current) use of insulin; I12.9 Hypertensive chronic kidney disease with stage 1 through stage 4 chronic kidney disease, or unspecified chronic kidney disease; Z20.822 Contact with and (suspected) exposure to COVID-19; Z79.82 Long term (current) use of aspirin; Z79.899 Other long term (current) drug therapy; Z88.0 Allergy status to penicillin; Z88.1 Allergy status to other antibiotic agents; Z91.030 Bee allergy status

== ENCOUNTER 2021-07-06 11:25 | Inpatient (IN) | payer MEDICARE ==
[~2021-07-06] VITALS: Ht 175.3 cm; Wt 93.1 kg
[~2021-07-06 11:25] MED LIST changes: +ALPH600C PO; +ASPI81TA26 PO; +ATOR1TAB19 PO; +ATOR40TA75 PO; +CIDA500T2 PO; +METF-877 PO; +METF10004 PO; +OCUVTAB4 PO; +TRUL10IN SC; +XARE20TA PO
--- NOTE | 2021-07-06 13:12 | REP ---
INDICATION: AMS. COMPARISON: Comparison study June 29, 2021. TECHNIQUE: Portable sitting AP chest radiograph. Single-view. FINDINGS: EKG electrodes are seen. The there are mediastinal clips. The lungs are symmetrically aerated and free of infiltrate. Pleural angles are sharp. Heart size is borderline unchanged. Pulmonary vasculature is not increased. IMPRESSION: Borderline heart size. Otherwise no acute disease. Multiple mediastinal clips. <Electronically signed by Ray Mascorro > 07/06/21 [id number]
[2021-07-06 13:15] LABS: BASO % 0.9 % (0.0-1.0); EOS # 0.4 10^3/uL (0.0-0.5); EOS % 8.6 % (0.0-3.0); HEMATOCRIT 46.4 % (42.0-52.0); HEMOGLOBIN 15.3 g/dl (13.5-17.5); LYMPH # 0.6 10^3/uL (1.5-5.0); LYMPH % 12.4 % (24.0-44.0); MONO # 0.4 10^3/uL (0.0-0.8); MONO % 8.3 % (2.0-8.0); NEUTROPHILS # 3.1 10^3/uL (1.5-8.5); NEUTROPHILS % 69.1 % (36.0-66.0); PLATELET COUNT, AUTOMATED 252 10^3/uL (150-450); RED BLOOD COUNT 5.27 10^6/uL (4.30-6.10); WHITE BLOOD COUNT 4.4 10^3/uL (4.0-10.0)
[2021-07-06 13:50] LABS: ALT/SGPT 25 U/L (12-78); BILIRUBIN,DIRECT 0.4 MG/DL (0.0-0.2); BILIRUBIN,TOTAL 1.8 MG/DL (0.2-1.0); BLOOD UREA NITROGEN 23 MG/DL (7-18); CALCIUM LEVEL 12.9 MG/DL (8.8-10.2); CARBON DIOXIDE LEVEL 26 MEQ/L (21-32); CHLORIDE LEVEL 108 MEQ/L (98-107); CK-MB VALUE MASS 2.3 NG/ML (<3.6); CPK CREATINE PHOSPHOKINASE 32 U/L (39-308); CREATININE FOR GFR 1.51 MG/DL (0.70-1.30); GLOMERULAR FILTRATION RATE 48.2 (>42); GLUCOSE, FASTING 114 MG/DL (70-100); MB/CK RELATIVE INDEX 7.19 (< OR =4); POTASSIUM SERUM 4.3 MEQ/L (3.5-5.1); SODIUM LEVEL 141 MEQ/L (136-145); THYROID STIMULATING HORMONE 0.757 uIU/ML (0.358-3.740); TROPONIN I < 0.02 NG/ML (< 0.10)
[2021-07-06] MEDS ORDERED: NS 1,000 ML IV ONE (17:55)
[2021-07-06] MEDS ORDERED: ATOR40TA75 PO (18:26)
[2021-07-06] MEDS ORDERED: HOME MED LIST COMPLETE! XX SCH (18:30)
[2021-07-06 18:44] LABS: RSV AMPLIFICATION NEGATIVE (NEGATIVE)
[2021-07-06] MEDS ORDERED: DEXTROSE 50% 50 ML SYRINGE IV PRN (19:05)
[2021-07-06] MEDS ORDERED: GLUCOSE 4GM CHEW TABLET PO PRN (19:05)
[2021-07-06] MEDS ORDERED: GLUCAGON INJ 1MG VIAL SC PRN (19:05)
--- NOTE | 2021-07-06 19:09 | HPEPDOC ---
General Date of Admission Jul 06, 2021 at 17:53 Date of Service: Jul 06, 2021 Chief Complaint The patient is a 76-year-old male admitted with a reason for visit of Dementia,Hypercalcemia,Unsteady Gait. Source: Family, RN/MD History of Present Illness 76-year-old male with past medical history of dementia, gait instability, extensive small vessel ischemic disease of the brainstem, CAD, hypertension, diabetes with neuropathy, peripheral arterial disease, was recently admitted from 06/29/2021 to 07/03/2021 for confusion, hallucination, gait instability and word finding difficulty. He was admitted as a stroke rule out. At that time he was also found to be hypercalcemic. MRI ruled out any acute stroke but showed severe small vessel ischemic disease as symmetrical in nature which appeared as large area of low-density in the right frontal and parietal regions in the CT scan of the head. He was evaluated by neurology. Patient was discharged on 07/03/2021 with home services. As per he was walking in the house with her help and holding onto objects. But today he was being unmanageable would not listen to her and directable. He was urinating in the rooms thinking it was the bathroom and would not be directed to the bathroom. called home services about this and she was directed to bring her back to the emergency room with intention of getting into rehabilitation. He continues to have gait instability, confusion. In the ED he was evaluated by PT and failed home safety evaluation. His labs again showed hypercalcemia a little worse than last week. As per his appetite has been poor for several weeks. On my exam patient was sleeping opening eyes when called told me his name but could not say where he was and could not identify . All history is taken for and chart review. Patient denied any pain or any discomfort anywhere. He followed commands and was able to move all 4 extremities. Patient was admitted for evaluation of hy percalcemia, unstable gait, dementia with confusion. Home Medications Scheduled Alpha Lipoic Acid (Alpha Lipoic Acid) 600 Mg Capsule, 600 MG PO BID, (Reported) Amlodipine Besylate (Norvasc) 2.5 Mg Tablet, 2.5 MG PO DAILY, (Reported) Aspirin (Aspirin EC) 81 Mg Tablet.dr, 81 MG PO DAILY, (Reported) Atorvastatin Calcium (Atorvastatin Calcium) 40 Mg Tablet, 40 MG PO DAILY, (Reported) Dapagliflozin Propanediol (Farxiga) 10 Mg Tablet, 10 MG PO DAILY, (Reported) Dulaglutide (Trulicity) 0.75 Mg/0.5 Ml Pen.injctr, 0.75 MG SC 1XWK, (Reported) MONDAYS Famotidine (Pepcid AC) 10 Mg Tablet, 10 MG PO DAILY, (Reported) Glucosamine/Chondr Lassiter A Sod (Cidaflex Tablet) 1 Each Tablet, 1 TAB PO BID, (Reported) Insulin Glargine,Hum.rec.anlog (Lantus Solostar) 100 Unit/Ml Inj, 60 UNITS SC DAILY, (Reported) Metformin HCl (Metformin HCl) 1,000 Mg Tablet, 1,000 MG PO QPM, (Reported) Metformin HCl (Metformin HCl) 1,000 Mg Tablet, 1,500 MG PO DAILY, (Reported) Metoprolol Tartrate (Metoprolol Tartrate) 25 Mg Tab, 25 MG PO BID, (Reported) Multivitamin (Multivitamin) 1 Each Tablet, 1 EACH PO DAILY, (Reported) Rivaroxaban (Xarelto) 20 Mg Tablet, 20 MG PO QHS, (Reported) Vit A/Vit C/Vit E/Zinc/Copper (Preservision Areds Tablet) 1 Each Tablet, 1 TAB PO BID, (Reported) Scheduled PRN Nitroglycerin (Nitroglycerin) 0.4 Mg Sub, 0.4 MG SL ASDIRECTED PRN for CHEST PAIN, (Reported) Allergies Coded Allergies: Penicillins (Verified Allergy, Severe, hives, trouble breathing, 06/29/21) bee venom protein (honey bee) (Verified Allergy, Severe, trouble breathing, 06/29/21) erythromycin base (Verified Adverse Reaction, Mild, upset stomach, 06/29/21) Past Medical History Medical History Dementia Extensive small vessel ischemic disease of the brain stem Gait instability Hypercalcemia CAD status post CABG, with NSTEMI in 2016 and cardiac catheterization with drug- eluting stent placed in the distal left main and proximal LAD CVA in December 2018 treated with TPA Intracardiac thrombus on echocardiogram in [place] on Xarelto Hypertension 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 Hyperlipidemia Hypertension Significant peripheral arterial disease with multiple lower extremity bypass surgeries (follows with vascular surgery in [place]) CKD stage IIIa Grade 1 diastolic dysfunction seen on December 2020 echocardiogram Surgical History CABG x5 with postop osteomyelitis of the sternum that was debrided PTCA/stents LAD December 1988, May 2002 Colonoscopies (tubular adenoma 2011, 2016, 2001, 2005, 2008, July 2012, August 2017) Right SFA, 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 [facility] 09/22 Angioplasty with 2 left lower extremity stents Right lower extremity angioplasty in [place] PTCA x2 Family History Father: ; diabetes type 2, [place] Mother: ; Alzheimer's disease Son: History of hemochromatosis and transposition of the great arteries Social History * Smoker: former Smoker Alcohol: Denies Drugs: denies A-FIB/CHADSVASC A-FIB History Current/History of A-Fib/PAF?: No Current PO Anticoag Therapy: Yes Review of Systems Constitutional: Denies: Chills, Fever, Night Sweats Eyes: Denies: Pain, Vision change ENT: Denies: Head Aches, Ear Pain, Dysphagia Skin: Denies: Rash, Lesions, Breakdown Pulmonary: Denies: Dyspnea, Cough Cardiovascular: Denies: Chest Pain, Palpitations, Orthopnea, Paroxysmal Noc. Dyspnea, Lt Headedness Gastrointestinal: Denies: Nausea, Vomiting, Abdominal Pain, Diarrhea Genitourinary: Denies: Dysuria, Frequency Hematologic: Denies: Bruising, Bleeding Excessively Musculoskeletal: Reports: Leg Pain; Denies: Neck Pain, Joint Pain, Muscle Pain, Spasms Neurological: Reports: Incoordination, Confusion Psych: Reports: Memory Issues Physical Examination General Exam: Positive: Cooperative, No Acute Distress, Other (Somnolent but opening eyes when called and answering 1 or 2 questions) Eye Exam: Positive: PERRLA, Conjunctiva & lids normal, EOMI; Negative: Sclera icteric ENT Exam: Positive: Atraumatic, Mucous membr. moist/pink, Pharynx Normal Neck Exam: Positive: Supple; Negative: JVD, thyromegaly Chest Exam: Positive: Clear to auscultation, Normal air movement Heart Exam: Positive: Rate Normal, Regular Rhythm, Normal S1, Normal S2; Negative: Murmurs, Rubs Abdomen Exam: Positive: Normal bowel sounds, Soft; Negative: Tenderness Extremity Exam: Negative: Clubbing, Cyanosis, Edema Skin Exam: Positive: Nl turgor and temperature; Negative: Breakdown, Lesion Psych Exam: Negative: Memory Intact, Oriented x 3 Vital Signs Vital Signs Date Time Temp Pulse Resp B/P (MAP) Pulse Ox O2 Delivery O2 Flow Rate FiO2 07/06/21 15:30 86 07/06/21 14:45 18 117/74 (88) 07/06/21 14:00 84 07/06/21 12:15 Room Air 07/06/21 11:28 97.0 Laboratory Data Labs 24H Laboratory Tests 2 07/06/21 12:58: Immature Granulocyte % (Auto) 0.7, Neutrophils (%) (Auto) 69.1H, Lymphocytes (%) (Auto) 12.4L, Monocytes (%) (Auto) 8.3H, Eosinophils (%) (Auto) 8.6H, Basophils (%) (Auto) 0.9, Neutrophils # (Auto) 3.1, Lymphocytes # (Auto) 0.6L, Monocytes # (Auto) 0.4, Eosinophils # (Auto) 0.4, Basophils # (Auto) 0.0, Nucleated Red B lood Cells % (auto) 0.0, Urine Color YELLOW, Urine Appearance CLEAR, Urine pH 5.0, Urine Specific [place] 1.020, Urine Protein NEGATIVE, Urine Glucose (UA) 3+H, Urine Ketones TRACEH, Urine Blood 1+H, Urine Nitrite NEGATIVE, Urine Bilirubin NEGATIVE, Urine Urobilinogen 0.2, Urine Leukocyte Esterase NEGATIVE, Urine WBC (Auto) 0, Urine RBC (Auto) 2, Urine Hyaline Casts (Auto) 3, Urine Bacteria (Auto) NEGATIVE, Urine Squamous Epithelial Cells 0, Urine Mucus (Auto) SMALL, Urine Sperm (Auto) , Anion Gap 7L, Glomerular Filtration Rate 48.2, Calcium Level 12.9H, Total Bilirubin 1.8H, Direct Bilirubin 0.4H, Aspartate Amino Transf (AST/SGOT) 47H, Alanine Aminotransferase (ALT/SGPT) 25, Alkaline Phosphatase 98, Ammonia 33H, Total Creatine Kinase 32L, Creatine Kinase MB 2.3, Creatine Kinase MB Relative Index 7.19H, Troponin I < 0.02, Total Protein 6.0L, Albumin 3.0L, Albumin/Globulin Ratio 1.0, Thyroid Stimulating Hormone (TSH) 0.757 07/06/21 15:05: Bedside Glucose (Misc Panel) 98 07/06/21 17:37: CBC/BMP Laboratory Tests 07/06/21 12:58 Assessment/Plan 76-year-old male with past medical history of dementia, gait instability, extensive small vessel ischemic disease of the brainstem, CAD, hypertension, diabetes with neuropathy, peripheral arterial disease, was recently admitted from 06/29/2021 to 07/03/2021 for confusion, hallucination, gait instability and word finding difficulty. He was admitted as a stroke rule out. At that time he was also found to be hypercalcemic. MRI ruled out any acute stroke but showed severe small vessel ischemic disease as symmetrical in nature which appeared as large area of low-density in the right frontal and parietal regions in the CT scan of the head. He was evaluated by neurology. Patient was discharged on 07/03/2021 with home services. Today he was very confused and could not direct him and he became unmanageable he was urinating in the rooms thinking it was the bathroom. She became overwhelmed and feels that she she will be unable to take care of him the way he is at present so brought the patient back to the emergency room. He was seen by PT and failed home safety evaluation. In the ED patient was also found to be hypercalcemic. Patient was admitted for evaluation of hypercalcemia, unstable gait, dementia with confusion and hallucination. Hypercalcemia Will order hypercalcemia work-up PTH on 920 was low as expected Order PTH RP vitamin 125 dihydroxy D 25 hydroxy D serum serum free light chains serum immunofixation BETO levels Normal saline bolus and 100 cc/h Consult nephrology CKD stage 3 Creatinine at base Dementia With increased confusion, hallucinations This is most likely due to advancing dementia. Hypercalcemia may worsen confusion. Will see if confusion and hallucinations improve after correction of calcium Sitter if needed Dementia says his worsened this year May need long-term placement Gait instability Due to peripheral arterial disease, dementia, neuropathy PT /OT eval CAD/CABG/stent/intracardiac Continue beta-santiago, aspirin, statin, Xarelto Hypertension Continue beta-santiago We will hold amlodipine for now Diabetes with neuropathy We will continue Levemir at half the dose, and lispro as per sliding scale Carb consistent diet Fingersticks before meals and at bedtime Hyperlipidemia Continue statin History of stroke in 2019/severe chronic small vessel ischemic disease of the brain Continue aspirin, statin, Xarelto Plan / VTE VTE Prophylaxis Ordered?: Yes Marleny Cohen MD Jul 06, 2021 18:20
[2021-07-06] MEDS ORDERED: PILL CUTTER 1 EACH XX PRN (19:25)
[2021-07-06 20:00] VITALS: BP 144/69
[2021-07-06] MEDS ORDERED: OLANZapine INTRAMUSCULAR 10MG VIAL IM PRN (20:35)
[2021-07-06 20:40] LABS: TOTAL 25(OH) VITAMIN D 47.2 NG/ML (30.0-100.0)
[2021-07-06] MEDS: HumaLOG INSULIN (NovoLOG) PER UNIT SC SCH (20:50)
[2021-07-06 21:01] LABS: BLOOD UREA NITROGEN 24 MG/DL (7-18); CALCIUM LEVEL 12.3 MG/DL (8.8-10.2); CARBON DIOXIDE LEVEL 30 MEQ/L (21-32); CHLORIDE LEVEL 110 MEQ/L (98-107); CREATININE FOR GFR 1.52 MG/DL (0.70-1.30); GLOMERULAR FILTRATION RATE 47.8 (>42); GLUCOSE, FASTING 75 MG/DL (70-100); POTASSIUM SERUM 4.3 MEQ/L (3.5-5.1); SODIUM LEVEL 145 MEQ/L (136-145)
[2021-07-06] MEDS: RIVAROXABAN 20 MG TAB (XARELTO) PO SCH (21:02)
[2021-07-06] MEDS: RAMELTEON 8 MG TAB (ROZEREM) PO PRN (21:02)
[2021-07-06] MEDS: NS 1,000 ML IV SCH (21:03)
[2021-07-06] MEDS: METOPROLOL TART 25 MG TABLET PO SCH (21:03)
--- NOTE | 2021-07-07 04:52 | ECGEPIP ---
[facility] - ED Test Date: 2021-07-06 Pat Name: TIFFANY MEZA Department: Room: - Gender: Male Digital Communications Manager: REENA : 1945 Requested By: NIKITA GREEN Order Number: [id number] Reading MD: Nikita Poe Measurements Intervals [place] Rate: 85 P: 69 MA: 210 QRS: 7 QRSD: 106 T: -13 QT: 350 QTc: 416 Interpretive Statements Sinus rhythm with 1st degree AV block Anteroseptal infarct , age undetermined T wave abnormality, consider lateral ischemia Similar to tracing done 07-01-21 Electronically Signed on 07-07-2021 4:52:22 EDT by Nikita Poe
[2021-07-07 06:00] VITALS: BP 153/72
[2021-07-07 06:25] LABS: HEMATOCRIT 44.8 % (42.0-52.0); HEMOGLOBIN 14.9 g/dl (13.5-17.5); MEAN CORPUSCULAR HEMOGLOBIN 29.3 pg (27.0-33.0); MEAN CORPUSCULAR HGB CONC 33.3 g/dl (32.0-36.5); MEAN CORPUSCULAR VOLUME 88.2 fl (80.0-96.0); PLATELET COUNT, AUTOMATED 229 10^3/uL (150-450); RED BLOOD COUNT 5.08 10^6/uL (4.30-6.10); WHITE BLOOD COUNT 4.2 10^3/uL (4.0-10.0)
[2021-07-07] MEDS: NS 1,000 ML IV SCH (06:38)
[2021-07-07 06:49] LABS: ALBUMIN 2.8 GM/DL (3.2-5.2); BILIRUBIN,TOTAL 1.5 MG/DL (0.2-1.0); CALCIUM LEVEL 12.3 MG/DL (8.8-10.2); CREATININE FOR GFR 1.43 MG/DL (0.70-1.30); GLOMERULAR FILTRATION RATE 51.3 (>42); POTASSIUM SERUM 4.3 MEQ/L (3.5-5.1); TOTAL PROTEIN 5.8 GM/DL (6.4-8.2)
[2021-07-07] MEDS: ATORVASTATIN 20 MG TAB PO SCH (08:33)
[2021-07-07] MEDS: ASPIRIN 81MG ENTERIC TABLET PO SCH (08:33)
[2021-07-07] MEDS: FAMOTIDINE 20 MG TAB PO SCH (08:34)
[2021-07-07] MEDS: METOPROLOL TART 25 MG TABLET PO SCH ×2 (08:34→20:57)
--- NOTE | 2021-07-07 08:58 | IPNPDOC ---
Text Note Date of Service The patient was seen on 07/07/21. NOTE Subjective: Patient seen and examined at bedside. Patient is demented and unable to provide any useful information. 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 He was admitted as a stroke rule out. At that time he was also found to be hypercalcemic. MRI ruled out any acute stroke but showed severe small vessel ischemic disease as symmetrical in nature which appeared as large area of low-density in the right frontal and parietal regions in the CT scan of the head. He was evaluated by neurology. Patient was discharged on 07/03/2021 with home services. He returns for worsening confusion, could not direct him and he became unmanageable he was urinating in the rooms thinking it was the bathroom. She became overwhelmed and feels that she she will be unable to take care of him the way he is at present so brought the patient back to the emergency room. He was seen by PT and failed home safety evaluation. In the ED patient was also found to be hypercalcemic. Patient was admitted for evaluation of hypercalcemia, unstable gait, dementia with confusion and hallucination. #Hypercalcemia - slowly improving - remained workup pending - continue NS - nephrology c/s pending #CKD stage 3 Creatinine at base #Dementia - With increased confusion, hallucinations - This is most likely due to advancing dementia. Hypercalcemia may worsen confusion. - Will see if confusion and hallucinations improve after correction of calcium - Sitter if needed #Dementia - says his worsened this year - will likely need long-term placement #Gait instability - Due to peripheral arterial disease, dementia, neuropathy - PT /OT eval #CAD/CABG/stent/intracardiac - Continue beta-santiago, aspirin, statin, Xarelto #HTN - continue beta-santiago - home amlodipine on hold #Diabetes with neuropathy - levemir held this morning - Carb consistent diet - Fingersticks before meals and at bedtime #Hyperlipidemia - Continue statin #History of stroke in 2019/severe chronic small vessel ischemic disease of the brain - Continue aspirin, statin, Xarelto #DVT propylaxis - as above, on xarelto Disposition: Discussed with his , gave her the news of imaging results showing metastatic disease. is not interested in any further treatments for his cancer. VS,Fishbone, I+O VS, Fishbone, I+O Laboratory Tests 07/06/21 12:58 07/06/21 19:44 07/07/21 06:06 Vital Signs Date Time Temp Pulse Resp B/P (MAP) Pulse Ox O2 Delivery O2 Flow Rate FiO2 07/07/21 08:34 93 145/78 07/07/21 06:00 98.3 16 98 Room Air I&O- Last 24 Hours up to 6 AM 07/07/21 06:00 Intake Total 900 ml Output Total 0 ml Balance 900 ml LINNEA MARQUEZ MD Jul 07, 2021 08:58
[2021-07-07] MEDS: LEVEMIR (INSULIN DETEMIR) 1 UNITS/0.01ML SC SCH (09:00)
[2021-07-07] MEDS: HumaLOG INSULIN (NovoLOG) PER UNIT SC SCH ×4 (09:00→20:15)
[2021-07-07 09:16] LABS: PTH INTACT 11.4 PG/ML (18.5-88.0)
[2021-07-07] MEDS ORDERED: NS 0.45% 1,000 ML IV SCH (10:40)
--- NOTE | 2021-07-07 11:50 | REP ---
INDICATION: hypercalcemia, eval for granulomatous disease or lymphadenop. COMPARISON: 04/10/2010 the latest prior also without contrast TECHNIQUE: Standard helical technique limited without intravenous or oral bowel preparatory contrast administration. FINDINGS: There is advanced mesenteric, peripancreatic, and para-aortic adenopathy which has developed since the last exam. There is advanced pelvic sidewall adenopathy and left inguinal adenopathy which has developed since the last exam. More mild right inguinal adenopathy has also developed. Seen in the pancreatic tail there is a 1.8 cm sized focal area of mixed density representing a change from the prior exam. This is difficult to evaluate without intravenous contrast administration. Cholelithiasis has developed since the last exam. There are bilateral nonobstructing nephroliths which have developed since the last exam and likely renovascular calcifications. There is calcific atherosclerotic change seen involving the aorto iliac regions with bilateral common iliac arterial aneurysms increased from the prior exam. On the right this measures 3.2 cm and on the left this measures 2.7 cm and difficult to evaluate without intravenous contrast administration. There is prostatomegaly and corpora amylacea increased from the prior exam. The bowel loops are essentially unchanged and grossly within normal limits. The liver and spleen are essentially unchanged. There is no evidence of free fluid or free air. Bone window technique throughout the exam shows spinal degenerative changes which have increased from the prior exam. IMPRESSION: 1. Intra-abdominal, retroperitoneal, and pelvic adenopathy as described above. The finding is consistent with neoplasm. 2. Abnormal appearing pancreatic tail with a possible mass lesion as described above. A contrast-enhanced CT examination of the abdomen and pelvis is recommended. 3. Cholelithiasis. 4. Common iliac artery aneurysms as described above. 5. Renovascular calcifications. 6. Prostatomegaly which has increased in size. 7. Other findings as described above. <Electronically signed by Samuel Tma > 07/07/21 2006
--- NOTE | 2021-07-07 12:02 | REP ---
INDICATION: hypercalcemia, eval for granulomatous disease or lymphadenop. COMPARISON: Comparison CT study is from May 26, 2009. TECHNIQUE: Helical scanning is acquired. 3 mm axial images are generated. Coronal and sagittal MPR and coronal MIP images are generated. FINDINGS: Preliminary digital seal delivery vehicle team technician radiograph demonstrates that the patient is apparently unable to raise his arms out of the scanned field. There is some associated spray artifact. No supraclavicular adenopathy is seen. There is minimal right axillary lymphadenopathy. There is a benign-appearing calcification in the left thyroid gland. There is fairly bulky mediastinal lymphadenopathy with multiple anterior, right paratracheal, AP window region, and subcarinal nodes visible. Granulomatous calcifications are seen within several of these lymph nodes. There is mild bilateral hilar fullness as well. Aortic and coronary artery vascular calcification is seen. There is no evidence of pleural effusion or pericardial effusion. There is a partially calcified perihilar nodule in the left upper lobe consistent with a granuloma. There is a ground-glass opacity nodule in the left lower lobe visible on axial page 45 of 107 series 204. This measures 1.1 cm in greatest diameter. The centrally calcified granulomatous nodule was visible previously on the 2008 prior study. The ground-glass opacity in the left lower lobe is not apparent previously. No other pulmonary nodule is seen. No infiltrate is seen. There are degenerative changes in the thoracic spine. 9 opaque gallstones are visible in the gallbladder. There are shoddy upper abdominal periaortic and peripancreatic and mesenteric lymph nodes. Celiac axis adenopathy is seen. The adenopathy in the chest and abdomen is new from the prior study. IMPRESSION: There is fairly bulky mediastinal lymphadenopathy mild bilateral hilar lymphadenopathy and right axillary lymphadenopathy. There is moderate celiac axis and upper abdominal lymphadenopathy. Granulomatous disease most likely versus lymphoma. There is a centrally calcified granuloma in the left lung and a 1.1 cm ground-glass opacity in the left lung. Follow-up is advised. <Electronically signed by Ray Mascorro > 07/07/21 [id number]
[2021-07-07 14:00] VITALS: BP 131/82
[2021-07-07] MEDS ORDERED: ZOLEDRONIC ACID 3 MG in D5W 100 ML IV ONE (15:00)
[2021-07-07] MEDS: RIVAROXABAN 20 MG TAB (XARELTO) PO SCH (20:57)
[2021-07-07 22:00] VITALS: BP 143/79
[2021-07-08 06:00] VITALS: BP 146/72
[2021-07-08] MEDS: HumaLOG INSULIN (NovoLOG) PER UNIT SC SCH ×4 (07:30→20:24)
--- NOTE | 2021-07-08 10:16 | IPNPDOC ---
Text Note Date of Service The patient was seen on 07/08/21. NOTE Subjective: Patient seen and examined at bedside. Patient is demented and unable to provide any useful information. 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 He was admitted as a stroke rule out. At that time he was also found to be hypercalcemic. MRI ruled out any acute stroke but showed severe small vessel ischemic disease as symmetrical in nature which appeared as large area of low-density in the right frontal and parietal regions in the CT scan of the head. He was evaluated by neurology. Patient was discharged on 07/03/2021 with home services. He returns for worsening confusion, could not direct him and he became unmanageable he was urinating in the rooms thinking it was the bathroom. She became overwhelmed and feels that she she will be unable to take care of him the way he is at present so brought the patient back to the emergency room. He was seen by PT and failed home safety evaluation. In the ED patient was also found to be hypercalcemic. Patient was admitted for evaluation of hypercalcemia, unstable gait, dementia with confusion and hallucination. #Hypercalcemia - labs pending for today - secondary to malignancy - slowly improving - nephrology c/s appreciated #metastatic disease - discussed with oncology - assistance appreciated - biopsy pending to determine primary - MRI brain completed last admission - no mets #CKD stage 3 Creatinine at base #Dementia - says his worsened this year - will likely need long-term placement #Gait instability - multifactorial - peripheral arterial disease, dementia, neuropathy - PT /OT eval #CAD/CABG/stent/intracardiac - Continue beta-santiago, aspirin, statin, Xarelto #HTN - continue beta-santiago - home amlodipine on hold #Diabetes with neuropathy - Carb consistent diet - Fingersticks before meals and at bedtime #Hyperlipidemia - Continue statin #History of stroke in 2019/severe chronic small vessel ischemic disease of the brain - Continue aspirin, statin, Xarelto #DVT propylaxis - as above, on xarelto Disposition: pending further workup of malignancy, likely will need placement VS,Fishbone, I+O VS, Fishbone, I+O Vital Signs Date Time Temp Pulse Resp B/P (MAP) Pulse Ox O2 Delivery O2 Flow Rate FiO2 07/08/21 06:00 97.4 76 18 146/72 (96) 94 Room Air I&O- Last 24 Hours up to 6 AM 07/08/21 05:59 Intake Total 2353 ml Output Total 0 ml Balance 2353 ml LINNEA MARQUEZ MD Jul 08, 2021 10:16
[2021-07-08 10:30] LABS: EOS # 0.3 10^3/uL (0.0-0.5); EOS % 7.8 % (0.0-3.0); HEMATOCRIT 47.6 % (42.0-52.0); HEMOGLOBIN 15.7 g/dl (13.5-17.5); LYMPH # 0.5 10^3/uL (1.5-5.0); LYMPH % 11.7 % (24.0-44.0); MEAN CORPUSCULAR HEMOGLOBIN 29.2 pg (27.0-33.0); MEAN CORPUSCULAR VOLUME 88.5 fl (80.0-96.0); MONO # 0.4 10^3/uL (0.0-0.8); MONO % 8.6 % (2.0-8.0); NEUTROPHILS # 2.9 10^3/uL (1.5-8.5); NEUTROPHILS % 70.4 % (36.0-66.0); PLATELET COUNT, AUTOMATED 221 10^3/uL (150-450); RED BLOOD COUNT 5.38 10^6/uL (4.30-6.10); WHITE BLOOD COUNT 4.1 10^3/uL (4.0-10.0)
[2021-07-08 11:03] LABS: BILIRUBIN,TOTAL 1.6 MG/DL (0.2-1.0); CALCIUM LEVEL 12.2 MG/DL (8.8-10.2); CREATININE FOR GFR 1.35 MG/DL (0.70-1.30); GLOMERULAR FILTRATION RATE 54.8 (>42); POTASSIUM SERUM 4.2 MEQ/L (3.5-5.1); TOTAL PROTEIN 6.2 GM/DL (6.4-8.2)
[2021-07-08 11:08] LABS: INR 1.67; PROTHROMBIN TIME 20.2 SECONDS (12.7-14.5)
[2021-07-08] MEDS: ATORVASTATIN 20 MG TAB PO SCH (11:16)
[2021-07-08] MEDS: ASPIRIN 81MG ENTERIC TABLET PO SCH (11:16)
[2021-07-08] MEDS: FAMOTIDINE 20 MG TAB PO SCH (11:16)
[2021-07-08] MEDS: LEVEMIR (INSULIN DETEMIR) 1 UNITS/0.01ML SC SCH (11:17)
[2021-07-08] MEDS: METOPROLOL TART 25 MG TABLET PO SCH ×2 (11:21→20:30)
[2021-07-08] MEDS ORDERED: NS 0.45% 1,000 ML IV SCH (12:00)
[2021-07-08 14:00] VITALS: BP 134/62
--- NOTE | 2021-07-08 17:56 | IPN ---
PROGRESS NOTE DATE: 07/08/2021 SUBJECTIVE: Mr. Cárdenas is seen and examined this morning at the bedside with the nursing staff present. Patient remains lethargic, confused. Has not had oral intake. There is otherwise no acute overnight event. He remains afebrile and hemodynamically stable and saturating well on room air. Temperature 97.4, pulse 69, respiratory rate 18, blood pressure 134/62, saturating 93%-94% on room air. Intake yesterday was 1.8 liters. It was all intravenous (IV). Weight in the bed scale today is 93.9 kg. GENERAL: Patient is seen lying in bed, not alert, elderly male. Looks comfortable. No distress. Nursing staff is present. Tongue is dry. Neck is supple. Jugular veins are not elevated. HEART: Sounds are regular, S1, S2. There is no peripheral edema. LUNGS: Clear to auscultation. No crackle or rale. ABDOMEN: Soft and nontender. EXTREMITIES: Show no edema. There are mitts on his hands, and he is in restraints. NEUROLOGIC: He is moving his extremities spontaneously. He does choir director on command but does not answer questions appropriately. LABORATORY DATA: White count 4.1, hemoglobin 15.7, platelets 221. Sodium 143, potassium 4.2, bicarbonate 27, BUN 22, creatinine 1.3, corrected calcium is 13. Light chains are pending. INPATIENT MEDICATIONS: I started the patient on half-normal saline at 40 mL an hour. His other medications are all unchanged as compared to yesterday. PROBLEMS: 1. Hypercalcemia. Due to severe elevation in activated vitamin D 1,25 level (300), and there is appropriately suppressed parathyroid hormone level and normal nutritional vitamin D stores. CT scan of the chest, abdomen, and pelvis shows diffuse and bulky lymphadenopathy along with granulomatous disease, which is causing his hypercalcemia. He is having no oral intake. I am continuing him on gentle hypotonic fluid, and he also got a dose of zoledronic acid yesterday. Further management of the lymphadenopathy is as per primary service and oncology. 2. Chronic kidney disease (CKD), stage III. Renal function is at baseline. Patient is having poor oral intake. He is receiving half-normal saline at 40 mL an hour. 3. Hypernatremia. It was mild. It was secondary to dehydration, and as patient is lethargic and not taking any reasonable amount of oral intake, he is on gentle IV fluid. 4. Hypertension. Blood pressure is very well controlled, and he continues on metoprolol.
[2021-07-08] MEDS: RAMELTEON 8 MG TAB (ROZEREM) PO PRN (20:26)
[2021-07-08] MEDS: RIVAROXABAN 20 MG TAB (XARELTO) PO SCH (20:26)
[2021-07-08 22:00] VITALS: BP 139/92
[2021-07-09 06:00] VITALS: BP 139/86
[2021-07-09 07:28] LABS: HEMATOCRIT 48.4 % (42.0-52.0); HEMOGLOBIN 15.7 g/dl (13.5-17.5); MEAN CORPUSCULAR HEMOGLOBIN 28.7 pg (27.0-33.0); MEAN CORPUSCULAR HGB CONC 32.4 g/dl (32.0-36.5); MEAN CORPUSCULAR VOLUME 88.5 fl (80.0-96.0); PLATELET COUNT, AUTOMATED 244 10^3/uL (150-450); RED BLOOD COUNT 5.47 10^6/uL (4.30-6.10); WHITE BLOOD COUNT 5.1 10^3/uL (4.0-10.0)
[2021-07-09] MEDS: HumaLOG INSULIN (NovoLOG) PER UNIT SC SCH ×4 (07:30→20:30)
[2021-07-09 07:55] LABS: CALCIUM LEVEL 11.3 MG/DL (8.8-10.2); CREATININE FOR GFR 1.31 MG/DL (0.70-1.30); GLOMERULAR FILTRATION RATE 56.8 (>42); POTASSIUM SERUM 4.3 MEQ/L (3.5-5.1)
[2021-07-09] MEDS: LEVEMIR (INSULIN DETEMIR) 1 UNITS/0.01ML SC SCH (09:00)
[2021-07-09] MEDS: ASPIRIN 81MG ENTERIC TABLET PO SCH (09:34)
[2021-07-09] MEDS: ATORVASTATIN 20 MG TAB PO SCH (09:34)
[2021-07-09] MEDS: FAMOTIDINE 20 MG TAB PO SCH (09:35)
[2021-07-09] MEDS: METOPROLOL TART 25 MG TABLET PO SCH ×2 (09:35→20:48)
[2021-07-09] MEDS: D5W 1,000 ML IV SCH (11:10)
[2021-07-09] MEDS ORDERED: LIDOCAINE 1% MDV 20ML VIAL As Ordered ONE (11:17)
[2021-07-09 14:00] VITALS: BP 134/73
--- NOTE | 2021-07-09 18:07 | IPNPDOC ---
Text Note Date of Service The patient was seen on 07/09/21. NOTE Subjective: Patient seen and examined at bedside. Patient is demented and unable to provide any useful information. 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 He was admitted as a stroke rule out. At that time he was also found to be hypercalcemic. MRI ruled out any acute stroke but showed severe small vessel ischemic disease as symmetrical in nature which appeared as large area of low-density in the right frontal and parietal regions in the CT scan of the head. He was evaluated by neurology. Patient was discharged on 07/03/2021 with home services. He returns for worsening confusion, could not direct him and he became unmanageable he was urinating in the rooms thinking it was the bathroom. She became overwhelmed and feels that she she will be unable to take care of him the way he is at present so brought the patient back to the emergency room. He was seen by PT and failed home safety evaluation. In the ED patient was also found to be hypercalcemic. Patient was admitted for evaluation of hypercalcemia, unstable gait, dementia with confusion and hallucination. #Hypercalcemia - secondary to malignancy - nephrology c/s appreciated #metastatic disease - discussed with oncology - assistance appreciated - biopsy pending to determine primary - MRI brain completed last admission - no mets #CKD stage 3 Creatinine at base #Dementia - says his worsened this year - will likely need long-term placement #Gait instability - multifactorial - peripheral arterial disease, dementia, neuropathy - PT /OT eval #CAD/CABG/stent/intracardiac - Continue beta-santiago, aspirin, statin, Xarelto #HTN - continue beta-santiago - home amlodipine on hold #Diabetes with neuropathy - Carb consistent diet - Fingersticks before meals and at bedtime #Hyperlipidemia - Continue statin #History of stroke in 2019/severe chronic small vessel ischemic disease of the brain - Continue aspirin, statin, Xarelto #DVT propylaxis - as above, on xarelto Disposition: Extensive discussion with . She is debating to proceed with comfort measures only. For now patient is DNR/DNI pending placement. VS,Fishbone, I+O VS, Fishbone, I+O Laboratory Tests 07/09/21 07:08 Vital Signs Date Time Temp Pulse Resp B/P (MAP) Pulse Ox O2 Delivery O2 Flow Rate FiO2 07/09/21 16:51 92 20 96 Room Air 07/09/21 15:28 97.7 07/09/21 14:00 134/73 (93) I&O- Last 24 Hours up to 6 AM 07/09/21 06:00 Intake Total 540 ml Balance 540 ml LINNEA MARQUEZ MD Jul 09, 2021 18:07
--- NOTE | 2021-07-09 19:43 | IPN ---
PROGRESS NOTE DATE: 07/09/2021 SUBJECTIVE: Mr. Cárdenas is seen and examined this morning at the bedside. He remains lethargic and confused, is not taking any oral intake, is restless in bed, remains afebrile and hemodynamically stable and receiving gentle IV fluids. OBJECTIVE: VITAL SIGNS: Temperature 97.7, pulse 84, respiratory rate 20, blood pressure 134/73, saturation 97% on room air. Intake yesterday was no significant oral intake and IV fluids was only 500 mL. Weight in the bed scale today was 93.5 kg. General: The patient was seen lying in bed fairly flat in no distress, but was restless and moving about. He has mitts on his bilateral hands. He is awake, but no oriented. Jugular veins are not elevated. Tongue is dry. Heart sounds are regular S1, S2. There is no peripheral edema. There is no dependent edema. Lungs are clear to auscultation. No crackle or rale. Abdomen is soft and nontender. Extremities show no edema. There are mitts on his hands. Genitourinary (): Shows Goemz catheter. Neurologic: He is moving his extremities spontaneously. He does not answer questions appropriately. LABORATORY STUDIES: White count 5.1, hemoglobin 15.7, platelets 244. Sodium 147, potassium 4.3, BUN 23, creatinine 1.3, calcium 11.3. INPATIENT MEDICATIONS: I switched the patient's IV fluids to D5W at 50 mL an hour. His remainder of medicines are unchanged as compared to yesterday. PROBLEMS: 1. Hypercalcemia due to severe elevation and activated vitamin D 125 level (300) in the setting of appropriately suppressed parathyroid hormone level and beth nutritional vitamin D stores. His severe elevation and activated vitamin D is secondary to granulomatous disease seen on CAT scan and the diffuse and bulky lymphadenopathy that was seen as well. He is having minimal oral intake and the patient is receiving gentle hypotonic fluid. He got a dose zoledronic acid two days ago and his calcium level is improving. Further management of the granulomatous disease/lymphadenopathy is as per primary service and oncology. 2. Chronic kidney disease (CKD), stage III. Renal function is stable at baseline. The patient is having poor oral intake because of his poor mental status and his receiving D5W now at 50 mL per hour. 3. Hypernatremia. It is secondary to inadequate oral intake because of the patient's poor mentation and he is receiving D5W for correction of his free water deficit. 4. Hypertension. Blood pressures are nicely controlled with metoprolol. 5. Hypoglycemia. Glucose this morning was on the low side at 73. The patient is having poor oral intake. He is on dextrose containing gentle IV fluids, D5W at 50 mL an hour. DISPOSITION: Primary team is discussing with his regarding further workup on his abnormal CT of the chest, abdomen and pelvis and possible plans to proceed with biopsy depending on his 's wishes.
[2021-07-09] MEDS: RAMELTEON 8 MG TAB (ROZEREM) PO PRN (20:47)
[2021-07-09] MEDS: RIVAROXABAN 20 MG TAB (XARELTO) PO SCH (20:48)
[2021-07-09 22:00] VITALS: BP 123/65
[2021-07-10] MEDS ORDERED: NYSTATIN 100,000 UNITS/GM TOPICAL PWD 15 GM TOP PRN (02:15)
[2021-07-10 06:00] VITALS: BP 130/71
[2021-07-10] MEDS: D5W 1,000 ML IV SCH (06:44)
[2021-07-10 06:49] LABS: HEMATOCRIT 47.5 % (42.0-52.0); HEMOGLOBIN 15.5 g/dl (13.5-17.5); MEAN CORPUSCULAR HEMOGLOBIN 28.9 pg (27.0-33.0); MEAN CORPUSCULAR HGB CONC 32.6 g/dl (32.0-36.5); MEAN CORPUSCULAR VOLUME 88.5 fl (80.0-96.0); PLATELET COUNT, AUTOMATED 223 10^3/uL (150-450); RED BLOOD COUNT 5.37 10^6/uL (4.30-6.10); WHITE BLOOD COUNT 5.3 10^3/uL (4.0-10.0)
[2021-07-10 07:20] LABS: CALCIUM LEVEL 10.8 MG/DL (8.8-10.2); CREATININE FOR GFR 1.54 MG/DL (0.70-1.30); GLOMERULAR FILTRATION RATE 47.1 (>42); POTASSIUM SERUM 4.4 MEQ/L (3.5-5.1)
[2021-07-10] MEDS: METOPROLOL TART 25 MG TABLET PO SCH ×2 (09:00→20:19)
[2021-07-10] MEDS: HumaLOG INSULIN (NovoLOG) PER UNIT SC SCH (09:15)
[2021-07-10] MEDS: ATORVASTATIN 20 MG TAB PO SCH (09:15)
[2021-07-10] MEDS: LEVEMIR (INSULIN DETEMIR) 1 UNITS/0.01ML SC SCH (09:15)
[2021-07-10] MEDS: ASPIRIN 81MG ENTERIC TABLET PO SCH (09:15)
[2021-07-10] MEDS: FAMOTIDINE 20 MG TAB PO SCH (09:15)
--- NOTE | 2021-07-10 09:38 | REP ---
INDICATION: tissue biopsy - new findings metastatic disease, LT GROIN LN. COMPARISON: None. TECHNIQUE: The procedure was performed under the direct supervision of Dr. Mascorro. The patient has a history of intra-abdominal retroperitoneal and pelvic adenopathy seen on a previous CT scan dated 07/07/2021. An enlarged lymph node in the left groin was targeted for biopsy. The risks and benefits of the procedure were explained and informed consent was obtained by the healthcare proxy. The left groin lymph node was localized using ultrasound guidance. The skin was prepped and draped in a sterile fashion. 5 mL of 1% lidocaine was used as a local anesthetic. Using ultrasound guidance a 17/18 gauge coaxial needle biopsy system was inserted and advanced into the lymph node. Eight core biopsy samples were obtained and sent to the lab for analysis. The patient tolerated the procedure well and there were no immediate complications. Estimated blood loss: Less than 1 mL. FINDINGS: None IMPRESSION: Ultrasound-guided left groin lymph node biopsy. <Electronically signed by Rene Lemus > 07/09/21 1709 <Electronically signed by Ray Mascorro > 07/10/21 [id number]
--- NOTE | 2021-07-10 15:59 | CR ---
CONSULTATION DATE: 07/07/2021 REQUESTING PHYSICIAN: Dr. Marleny Cohen REASON FOR CONSULTATION: Hypercalcemia of uncertain etiology in this patient with chronic kidney disease (CKD), stage IIIA. HISTORY OF PRESENT ILLNESS: History is obtained from chart review. Patient is unable to provide any history due to clinical condition. Mr. Efren Cárdenas is a 76-year-old male with a past medical history of CKD, stage III with a baseline creatinine of around 1.4-1.5. Also a history of dementia, extensive small-vessel ischemic disease of the brainstem, coronary artery disease, hypertension, diabetes with neuropathy, peripheral artery disease, and other comorbid conditions mentioned below. Patient was recently admitted to [facility] June 29 for confusion and word-finding difficulty and was also hypercalcemic on that admission and did have a laboratory workup of hypercalcemia. Patient was discharged home on July 03 but was brought back to the emergency room yesterday after he was altered at home and was significantly confused. I did review labs from his last hospitalization on June 29, which showed new onset of hypercalcemia. Previously in February and May of this year and on labs prior to that, patient was normocalcemia. Hypercalcemia workup from the June 29 admission was significant for severe elevation in activated vitamin D levels (vitamin D 1,25). His level was 299. He had appropriately suppressed parathyroid hormone level and no significant elevation in his nutritional vitamin D. He also had a negative serum protein electrophoresis (SPEP) with no M spike. Patient's most recent laboratory studies show a corrected calcium of 13.3 and ionized calcium of 6.2. A nephrology evaluation was requested for help in the evaluation and management of his new-onset hypercalcemia. MEDICAL HISTORY: 1. Grade 1 diastolic dysfunction (December 2020 echocardiogram). 2. CKD, stage IIIA (baseline creatinine 1.4-1.5). 3. Significant peripheral arterial disease with multiple lower extremity bypass surgeries. 4. Hypertension. 5. Dyslipidemia. 6. Type 2 diabetes mellitus with neuropathy. 7. Hypertension. 8. Chronic anticoagulation with Xarelto because of intracardiac thrombus. 9. Cerebrovascular accident (CVA) in December 2018. 10. Coronary artery disease status post coronary artery bypass graft (CABG). 11. History of non-ST elevation myocardial infarction (NSTEMI). 12. History of coronary artery stenting. 13. Hypercalcemia (new onset). 14. Gait instability. 15. Extensive small-vessel ischemic disease of the brainstem. 16. Dementia. SURGICAL HISTORY: 1. CABG times five with postoperative osteomyelitis of the sternum that was debrided. 2. Stenting of the coronary arteries. 3. Colonoscopies. 4. Angioplasty of the left lower extremity and of the right lower extremity. ALLERGIES: PENICILLIN, ERYTHROMYCIN, bee venom. HOME MEDICATIONS: - amlodipine 2.5 mg by mouth daily - aspirin 81 mg by mouth daily - atorvastatin 40 mg by mouth daily - Farxiga 10 mg by mouth daily - Trulicity 0.75 mg subcutaneous one time a week - Pepcid 10 mg daily - glucosamine one tablet twice a day - insulin, - metformin 1000 mg in the evening, 1.5 grams in the morning - metoprolol 24 mg by mouth twice a day - Xarelto 20 mg by mouth every night FAMILY HISTORY: Significant for diabetes and heart disease in his father. SOCIAL HISTORY: Lives with his . Ex-smoker. No alcohol or drugs. REVIEW OF SYSTEMS: Unable to obtain secondary to clinical condition. Patient is confused, lethargic, and unable to provide any history at all. VITAL SIGNS: Temperature 97.7, pulse 70, respiratory rate 18, blood pressure 131/82, saturating 95% on room air. Intake yesterday was 300. Urine output is recorded as three incontinence voids. GENERAL: Patient is seen lying flat in the bed, elderly male. Not awake, not alert, not oriented. Pupils are reactive to light. Tongue is moist. Neck is supple. Jugular veins are not elevated. HEART: Sounds are regular, S1, S2. There is no peripheral edema. LUNGS: Clear to auscultation. No crackle or rales. ABDOMEN: Soft. He does not grimace to palpation. EXTREMITIES: No clubbing, cyanosis or edema. NEUROLOGIC: Patient opens his eyes to name and does follow some simple commands but does not cooperate with physical exam and does not answer simple questions reliably. LABORATORY STUDIES: Sodium 146, potassium 4.3, bicarbonate 25, BUN 23, creatinine 1.4, GFR 51, ionized calcium 6.2, corrected calcium 13.3. Albumin 2.8. Parathyroid hormone is 11.4. Activated vitamin D125 is 299. Hemoglobin 14.9, platelets 229. Chest x-ray is negative. Lungs are symmetrically aerated and free of infiltrate. INPATIENT MEDICATIONS: I stopped normal saline. I switched the patient over to half-normal saline at 75 mL an hour. I have a dose of zoledronic acid 3 mg intravenous (IV) times one. He is on: - aspirin 81 mg by mouth daily - atorvastatin 40 mg by mouth daily - Pepcid 10 mg by mouth daily - insulin - metoprolol 25 mg by mouth twice a day - Xarelto 20 mg by mouth every night PROBLEMS: 1. Hypercalcemia. I reviewed the patient's prior labs. He had normal calcium levels in February and May of this year and on all the prior labs as well. Hypercalcemia is very recent. He was also hypercalcemic on his last admission on June 29, and a full laboratory workup was sent at that time, which I reviewed and which was notable for severe elevation in activated vitamin D 1,25 levels (299). He had a negative SPEP with no M spike. His nutritional vitamin D was normal. His parathyroid hormone was suppressed. His corrected calcium is 13.3. His ionized calcium is 6.2. These laboratory studies are indicative of hypercalcemia secondary to severe elevation in activated vitamin D, which can be seen either in malignancy with severe lymphadenopathy or in granulomatous disease. In order to make the diagnosis, I did order noncontrast CT scan of the chest, abdomen, and pelvis, and his CT scans are reviewed and show metastatic cancer and diffuse and bulky lymphadenopathy. This is hypercalcemia of malignancy. Patient was given a dose of zoledronic acid, and he is on IV fluids at this time as well. 2. Hypernatremia. It is mild. I stopped the normal saline, and I switched the patient to half-normal saline to correct the sodium level. 3. Newly diagnosed malignancy causing hypercalcemia. CT of the abdomen and pelvis shows intra-abdominal, retroperitoneal, and pelvic diffuse adenopathy and an abnormal pancreatic tail with a possible mass lesion. CT of the chest shows bulky mediastinal lymphadenopathy and granulomatous calcifications seen within the lymph nodes. These granulomatous processes are responsible for his severe elevation in activated vitamin D. I suggest that primary team should get further input and recommendations from oncology on how to proceed. 4. CKD, stage III. Renal function is at baseline. Continue IV fluid at this time and monitor calcium levels and renal function status post one dose of zoledronic acid.
[2021-07-10 20:19] VITALS: BP 123/70
[2021-07-10] MEDS ORDERED: NYSTATIN 100,000 UNITS/GM TOPICAL PWD 15 GM TOP SCH (21:00)
[2021-07-11] MEDS: FAMOTIDINE 20 MG TAB PO SCH (09:00)
[2021-07-11] MEDS ORDERED: LORazepam 1 MG TAB PO PRN (09:10)
[2021-07-11 23:07] LABS: FREE KAPPA LIGHT CHAINS SERUM 38.5 mg/L (3.3-19.4); KAPPA/LAMBDA RATIO SERUM 1.33 (0.26-1.65); PTH RELATED PEPTIDE < 2.0 pmol/L (.); VITAMIN D 1,25 DIHYDROXY 256.5 pg/mL (19.9-79.3)
--- NOTE | 2021-07-12 06:58 | IPNPDOC ---
Text Note Date of Service The patient was seen on 07/10/21. NOTE After extensive discussion with his , she has opted to proceed with PAPER GLUING OPERATOR only. Orders have been implemented, new MOLST form has been completed. Hospice consultation pending, patient wishing for hospice house. VS,Fishbone, I+O VS, Fishbone, I+O Vital Signs Date Time Temp Pulse Resp B/P (MAP) Pulse Ox O2 Delivery O2 Flow Rate FiO2 07/10/21 20:19 76 123/70 07/10/21 06:00 97.3 19 96 Room Air I&O- Last 24 Hours up to 6 AM 07/12/21 05:59 Intake Total 60 ml Output Total 0 ml Balance 60 ml LINNEA MARQUEZ MD Jul 12, 2021 06:58
[2021-07-12] MEDS: FAMOTIDINE 20 MG TAB PO SCH (10:21)
[2021-07-13] MEDS: FAMOTIDINE 20 MG TAB PO SCH (08:36)
[2021-07-13] MEDS: RAMELTEON 8 MG TAB (ROZEREM) PO PRN (20:51)
[2021-07-14] MEDS: FAMOTIDINE 20 MG TAB PO SCH (08:17)
--- NOTE | 2021-07-14 17:23 | CR.PDOC ---
General Date of Consultation: Jul 14, 2021 Referring Provider: SAMANTHA ROBLES DO Attending Physician: SAMANTHA ROBLES DO Consultation REASON FOR CONSULTATION: Prognosis of primary unknown poorly differentiated malignant neoplasm with extensive lymphadenopathy. HISTORY OF PRESENT ILLNESS: Mr. Cárdenas is a 76-year-old currently admitted for confusion, unsteady gait and hypercalcemia. Head CT 06/29/2021 showed no evidence of intracranial hemorrhage. There were findings suggestive of a recent infarct. Brain MRA 07/01/2021 showed occluded or severely stenotic left vertebral artery considered chronic. Brain MRI 07/01/2021 showed chronic bilateral inferior cerebellar infarcts, chronic left frontal and right posterior frontal, parietal chronic infarcts and lacunar infarcts. Calcium level was noted to be elevated and the patient was suspected to have malignancy. He had a CT chest abdomen pelvis 07/07/2021 which showed intra-abdominal retroperitoneal and pelvic adenopathy and abnormal appearing pancreatic tail with possible mass lesion. There was also note of fairly bulky mediastinal lymphadenopathy, mild bilateral hilar adenopathy and right axillary lymphadenopathy. Underwent FNA of left groin node 07/09/2021 which showed poorly differentiated malignant neoplasm. ALLERGIES: Please see below. HOME MEDICATIONS: Please see below. Medical History Dementia Extensive small vessel ischemic disease of the brain stem Gait instability Hypercalcemia CAD status post CABG, with NSTEMI in 2015 and cardiac catheterization with drug- eluting stent placed in the distal left main and proximal LAD CVA in December 2018 treated with TPA Intracardiac thrombus on echocardiogram in [place] on Xarelto Hypertension 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 Hyperlipidemia Hypertension Significant peripheral arterial disease with multiple lower extremity bypass surgeries (follows with vascular surgery in [place]) CKD stage IIIa Grade 1 diastolic dysfunction seen on December 2020 echocardiogram Surgical History CABG x5 with postop osteomyelitis of the sternum that was debrided PTCA/stents LAD December 1988, May 2002 Colonoscopies (tubular adenoma 2011, 2016, 2001, 2005, 2008, July 2012, Aug) Right SFA, 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 REVIEW OF SYSTEMS: The reported confusion, weight loss, cough, balance problems. Rest of review of systems negative. PHYSICAL EXAMINATION: VITAL SIGNS: Please see below. GENERAL APPEARANCE: Very drowsy, lying in bed, mumbling words. HEENT: Pinkish conjunctive anicteric. No cervical lymphadenopathy. RESPIRATORY: Fair air entry. No rales rhonchi no wheeze CARDIOVASCULAR: S1-S2 regular. ABDOMEN: Soft, nontender, positive bowel sounds. No guarding. EXTREMITIES: No cyanosis. No clubbing. No pedal edema. No axillary nor inguinal lymphadenopathy. NEUROLOGICAL: Extremely drowsy. Not responsive to questioning. LABORATORY DATA: Please see below. ASSESSMENT/PLAN: 76-year-old with primary unknown poorly differentiated malignant neoplasm with extensive lymphadenopathy. Awaiting further testing from pathology for characterization of primary unknown malignant neoplasm. The patient has poor performance status and completely bedbound unable to take care of himself. ECOG PS at least 3. Prognosis discussed with the patient's . Because of poor performance status hospice referral is appropriate. Thank you for referring Mr. Efren Cárdenas. Vital Signs/I&O Vital Signs Date Time Temp Pulse Resp B/P (MAP) Pulse Ox O2 Delivery O2 Flow Rate FiO2 07/10/21 20:19 76 123/70 07/10/21 06:00 97.3 19 96 Room Air I&O- Last 24 Hours up to 6 AM 07/14/21 06:00 Intake Total 1210 ml Output Total 0 ml Balance 1210 ml Allergies Coded Allergies: Penicillins (Verified Allergy, Severe, hives, trouble breathing, 06/29/21) bee venom protein (honey bee) (Verified Allergy, Severe, trouble breathing, 06/29/21) erythromycin base (Verified Adverse Reaction, Mild, upset stomach, 06/29/21) Home Medications Scheduled PRN Hyoscyamine Sulfate (Hyoscyamine Sulfate) 0.125 Mg Tab.subl, 0.125 MG PO Q4HP PRN for TERMINAL SECRETIONS, #15 Use sublingually if unable to swallow Lorazepam (Ativan) 0.5 Mg Tablet, 0.5 MG PO Q4HP PRN for ANXIETY/AGITATION, #30 Use sublingually if unable to swallow Morphine Sulfate (Morphine Sulfate) 100 Mg/5 Ml Solution, 0.25-1 ML PO Q2H PRN for PAIN OR DYSPNEA, #30 Use sublingually if unable to swallow Nitroglycerin (Nitroglycerin) 0.4 Mg Sub, 0.4 MG SL ASDIRECTED PRN for CHEST PAIN, (Reported) SUSSY GOMEZ MD FACP Jul 14, 2021 16:44
[2021-07-15] MEDS: FAMOTIDINE 20 MG TAB PO SCH (09:44)
[2021-07-15] MEDS ORDERED: HYOS125TA PO (10:25)
[2021-07-15] MEDS ORDERED: ATIV1TAB10 PO (10:25)
[2021-07-15] MEDS ORDERED: MORP1SOL5 PO (10:25)
--- NOTE | 2021-07-15 19:20 | DS.PDOC ---
Discharge Summary General Date of Admission Jul 06, 2021 at 17:53 Date of Discharge Jul 15, 2021 Specialist/Consultants [facility], Dr. Francis Mckay Oncology, Dr. Enamorado Discharge Summary PROCEDURES PERFORMED DURING STAY: Left groin biopsy on 07/09/21 ADMITTING DIAGNOSES: 1. Hypercalcemia 2. CKD stage 3 3. Dementia 4. Metabolic encephalopathy 5. Gait instability 6. CAD s/p CABG and stent 7. Hypertension 8. Diabetes mellitus complicated with neuropathy 9. Hyperlipidemia 10. History of stroke in 2019 11. Metastatic disease of unknown primary DISCHARGE DIAGNOSES: 1. Hypercalcemia 2. CKD stage 3 3. Dementia 4. Metabolic encephalopathy 5. Gait instability 6. CAD s/p CABG and stent 7. Hypertension 8. Diabetes mellitus complicated with neuropathy 9. Hyperlipidemia 10. History of stroke in 2019 11. Metastatic disease of unknown primary COMPLICATIONS/CHIEF COMPLAINT: Dementia,Hypercalcemia,Unsteady Gait. 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 He was admitted as a stroke rule out. At that time he was also found to be hypercalcemic. MRI ruled out any acute stroke but showed severe small vessel ischemic disease as symmetrical in nature which appeared as large area of low-density in the right frontal and parietal regions in the CT scan of the head. He was evaluated by neurology. Patient was discharged on 07/03/2021 with home services. As per he was walking in the house with her help and holding onto objects. But today he was being unmanageable would not listen to her and directable. He was urinating in the rooms thinking it was the bathroom and would not be directed to the bathroom. called home services about this and she was directed to bring her back to the emergency room with intention of getting into rehabilitation. He continues to have gait instability, confusion. In the ED he was evaluated by PT and failed home safety evaluation. His labs again showed hypercalcemia a little worse than last week. As per his appetite has been poor for several weeks. On my exam patient was sleeping opening eyes when called told me his name but could not say where he was and could not identify . All history is taken for and chart review. Patient denied any pain or any discomfort anywhere. He followed commands and was able to move all 4 extremities. Patient was admitted for evaluation of hypercalcemia, unstable gait, dementia with confusion. " HOSPITAL COURSE: During hospitalization, nephrology was consulted for hypercalcemia. Worked up demonstrated elevated severely elevated activated 1,25 vitamin D and metastatic cancer. The cancer was most likely the cause of elevated vitamin D causing hypercalcemia. Patient proceeded with obtaining left groin biopsy. In the mean time, the hypercalcemia was treated with IV fluids and a dose of zoledronic acid. Family decided to forgo treatment of stage 4 cancer. Due to poor prognosis, family decided on [facility] and hospice house. Preliminary FNA report returned with malignancy. Towards the end of hospitalization, patient has mostly been bed bound. He does not eat much and he does not speak much. He sometimes repeats words. I saw him today, and he did not verbally answer my question. There is a bed availability today. Patient will be discharged to Hospice house today. DISCHARGE MEDICATIONS: Please see below. ALLERGIES: Please see below. PHYSICAL EXAMINATION ON DISCHARGE: VITAL SIGNS: Please see below. GENERAL: Comfortable, in no apparent distress HEENT: Normocephalic, atraumatic EYES: Sclera clear NEUROLOGICAL EXAMINATION: Non verbal PSYCHIATRIC EXAMINATION: Normal mood and affect LABORATORY DATA: Please see below. IMAGING: Radiologist interpretation CT abd/pelvis without contrast 1. Intra-abdominal, retroperitoneal, and pelvic adenopathy as described above. The finding is consistent with neoplasm. 2. Abnormal appearing pancreatic tail with a possible mass lesion as described above. A contrast-enhanced CT examination of the abdomen and pelvis is recommended. 3. Cholelithiasis. 4. Common iliac artery aneurysms as described above. 5. Renovascular calcifications. 6. Prostatomegaly which has increased in size. 7. Other findings as described above. (Please see radiologist report for full report) CT chest without contrast There is fairly bulky mediastinal lymphadenopathy mild bilateral hilar lymphadenopathy and right axillary lymphadenopathy. There is moderate celiac axis and upper abdominal lymphadenopathy. Granulomatous disease most likely versus lymphoma. There is a centrally calcified granuloma in the left lung and a 1.1 cm ground-glass opacity in the left lung. Follow-up is advised. PROGNOSIS: [facility] ACTIVITY: As tolerated DIET: As tolerated DISCHARGE PLAN: Hospice facility DISPOSITION[facility] DISCHARGE INSTRUCTIONS: 1. Follow up with hospice provider at hospice facility DISCHARGE CONDITION: Stable Total time spent on discharge planning, discharge summary, and medication reconciliation: 35 minutes Vital Signs/I&Os Vital Signs Date Time Temp Pulse Resp B/P (MAP) Pulse Ox O2 Delivery O2 Flow Rate FiO2 07/10/21 20:19 76 123/70 07/10/21 06:00 97.3 19 96 Room Air I&O- Last 24 Hours up to 6 AM 07/15/21 06:00 Intake Total 220 ml Balance 220 ml Discharge Medications Scheduled PRN Hyoscyamine Sulfate (Hyoscyamine Sulfate) 0.125 Mg Tab.subl, 0.125 MG PO Q4HP PRN for TERMINAL SECRETIONS Use sublingually if unable to swallow Lorazepam (Ativan) 0.5 Mg Tablet, 0.5 MG PO Q4HP PRN for ANXIETY/AGITATION Use sublingually if unable to swallow Morphine Sulfate (Morphine Sulfate) 100 Mg/5 Ml Solution, 0.25-1 ML PO Q2H PRN for PAIN OR DYSPNEA Use sublingually if unable to swallow Nitroglycerin (Nitroglycerin) 0.4 Mg Sub, 0.4 MG SL ASDIRECTED PRN for CHEST PAIN, (Reported) Allergies Coded Allergies: Penicillins (Verified Allergy, Severe, hives, trouble breathing, 06/29/21) bee venom protein (honey bee) (Verified Allergy, Severe, trouble breathing, 06/29/21) erythromycin base (Verified Adverse Reaction, Mild, upset stomach, 06/29/21) SAMANTHA ROBLES DO Jul 15, 2021 19:20
== END 2021-07-15 11:41 | disposition hospice, inpatient (51) | DRG 829 ==
LOC: M ED 11:25 → M ED INP 17:53 → ENRESERV 18:52 → M MSPAV 20:00
PROVIDERS: ADMIT Internal Medicine Nephrology; ATTEND Internal Medicine
PROC: 07BJ3ZX Excision of Left Inguinal Lymphatic, Percutaneous Approach, Diagnostic (ICD-10-PCS; principal; 2021-07-09 15:34)
DX: C79.89 Secondary malignant neoplasm of other specified sites (principal); E87.0 Hyperosmolality and hypernatremia; C83.85 Other non-follicular lymphoma, lymph nodes of inguinal region and lower limb; E83.52 Hypercalcemia; F03.90 Unspecified dementia, unspecified severity, without behavioral disturbance, psychotic disturbance, mood disturbance, and anxiety; R26.81 Unsteadiness on feet; I73.9 Peripheral vascular disease, unspecified; I25.10 Atherosclerotic heart disease of native coronary artery without angina pectoris; I12.9 Hypertensive chronic kidney disease with stage 1 through stage 4 chronic kidney disease, or unspecified chronic kidney disease; E11.42 Type 2 diabetes mellitus with diabetic polyneuropathy; Z20.822 Contact with and (suspected) exposure to COVID-19; Z79.01 Long term (current) use of anticoagulants; Z79.82 Long term (current) use of aspirin; Z79.84 Long term (current) use of oral hypoglycemic drugs; Z79.899 Other long term (current) drug therapy; Z88.0 Allergy status to penicillin; Z88.1 Allergy status to other antibiotic agents; Z91.030 Bee allergy status; Z95.5 Presence of coronary angioplasty implant and graft; Z86.73 Personal history of transient ischemic attack (TIA), and cerebral infarction without residual deficits; I51.3 Intracardiac thrombosis, not elsewhere classified; E78.5 Hyperlipidemia, unspecified; N18.31 Chronic kidney disease, stage 3a; Z87.891 Personal history of nicotine dependence; E11.22 Type 2 diabetes mellitus with diabetic chronic kidney disease; Z66 Do not resuscitate; Z51.5 Encounter for palliative care